=== PATIENT | female | born 1995 | race Two or more races ===

== ENCOUNTER → 2019-08-22 | Emergency (ER) | payer OTHER | END | disposition left against medical advice (07) | LOC: ER 15:20 | DX: R10.9 Unspecified abdominal pain (principal); Z53.21 Procedure and treatment not carried out due to patient leaving prior to being seen by health care provider ==

== ENCOUNTER → 2020-03-08 | Emergency (ER) | payer OTHER | END | disposition left against medical advice (07) | LOC: ER 13:02 | DX: R51 Headache (principal); Z53.21 Procedure and treatment not carried out due to patient leaving prior to being seen by health care provider ==

== ENCOUNTER 2023-09-14 21:52 | Emergency (ER) | payer MEDICAID, OTHER ==
[~2023-09-14] VITALS: Ht 160 cm; Wt 79.7 kg
[2023-09-15] MEDS: ACETAMINOPHEN 500 MG TAB PO ONE (01:28)
[2023-09-15 01:40] VITALS: PULSE 72; RESP 18; TEMP 97.9; O2SAT 99
[2023-09-15] MEDS ORDERED: ACET500T58 PO (01:41)
[2023-09-15] MEDS ORDERED: IBUP-1454 PO (01:41)
[2023-09-15] MEDS: SODIUM CHLORIDE 0.9% 1,000 ML IV ONE (02:14)
[2023-09-15 02:55] VITALS: BP 98/56
== END 2023-09-15 02:57 | disposition home or self-care (01) ==
LOC: ER 21:52
DX: S29.012A Strain of muscle and tendon of back wall of thorax, initial encounter (principal); Z88.0 Allergy status to penicillin; Z88.6 Allergy status to analgesic agent; V43.52XA Car driver injured in collision with other type car in traffic accident, initial encounter; Y93.89 Activity, other specified; Y92.488 Other paved roadways as the place of occurrence of the external cause; Y99.8 Other external cause status
CPT/HCPCS: 72070; 96360; 99283; J7030

== ENCOUNTER 2024-05-22 07:56 | Inpatient (IN) | payer MEDICAID ==
[~2024-05-22] VITALS: Ht 157.5 cm; Wt 84.6 kg
[~2024-05-22 07:56] MED LIST: ACET500T58 PO; IBUP-1454 PO
--- NOTE | 2024-05-22 08:16 | ED.PDOC ---
GI ASSESSMENT HPI Comments 28Y F with PMHx gastric bypass (Jul 2022) and cholecystectomy (05/19/2024) presents to ED via EMS for chief complaint abd pain [id number] that began when she woke up. Pt had lap foster performed on Saturday05/19/2024 at a hospital in [place], [place] and was discharged on the same day. Pt has one child. Allergies include Aspirin, NSAIDs, and PCNs. Time Seen by MD: 08:07 Primary Care Provider: NONE Reviewed Notes: Medications, Allergies Allergies: Coded Allergies: Aspirin (Verified Allergy, Unknown, 09/14/23) NSAIDs (Verified Allergy, Unknown, 09/14/23) Penicillins (Verified Allergy, Unknown, 09/14/23) Home Meds Active Scripts Ibuprofen (Ibuprofen) 600 Mg Tab, 1 TAB PO Q6HP PRN, #20 TAB Prov:JOSE MANUEL GUTIERREZ PAC 09/15/23 Acetaminophen (Acetaminophen) 500 Mg Tab, 500 MG PO Q4HP PRN, #20 TAB Prov:JOSE MANUEL GUTIERREZ PAC 09/15/23 Information Source: Patient Mode of Arrival: EMS Timing: Minutes Duration: Since onset Prehospital treatment: None Quality: Sharp Vomitus: None Severity: Moderate Recent: Recent Surgery Recent Hx of: Abdominal Surgery Pain Location: Diffuse Modifying Factors: Nothing Associated sign and symptoms: Abdominal Pain Past Medical History PAST MEDICAL HISTORY: Denies Surgical History: Cholecystectomy Surgical History (Other): Gastric bypass INTAKE MANAGER History: No Pertinent INTAKE MANAGER History Family History Family History: Reviewed,noncontributory to illness, No family hx of Cancer, No family hx of DM, No family hx of Heart dmitriy, No family hx of HTN, No family hx ofKidney dmitriy, No family hx of Liver dmitriy, No family hx of Lung dmitriy, No family hx of Stroke Social History Smoker: Non-Smoker Alcohol: Denies ETOH Use Drugs: Denies Drug Use Lives In: Home Constitutional: denies: chills, diaphoresis, fatigue, fever, malaise, sweats, weakness, others EENTM: denies: blurred vision, double vision, ear bleeding, ear discharge, ear drainage, ear pain, ear ringing, eye pain, eye redness, hearing loss, mouth pain, mouth swelling, nasal discharge, nose bleeding, nose congestion, nose pain, photophobia, tearing, throat pain, throat swelling, voice changes, others Respiratory: denies: cough, hemoptysis, orthopnea, SOB at rest, shortness of breath, SOB with excertion, stridor, wheezing, others Cardiovascular: denies: chest pain, dizzy spells, diaphoresis, Dyspnea on exertion, edema, irregular heart beat, left arm pain, lightheadedness, palpitations, PND, syncope, others Gastrointestinal: reports: abdominal pain; denies: abdomen distended, blood streaked bowels, constipated, diarrhea, dysphagia, difficulty swallowing, hematemesis, melena, nausea, poor appetite, poor fluid intake, rectal bleeding, rectal pain, vomiting, others Genitourinary: denies: abnormal vagina bleeding, burning, dyspareunia, dysuria, flank pain, frequency, hematuria, incontinence, pain, , vagina discharge, urgency, others Neurological: denies: dizziness, fainting, headache, left sided numbness, left sided weakness, numbness, paresthesia, pre-existing deficit, right sided numbness, right sided weakness, seizure, speech problems, tingling, tremors, weakness, others Musculoskeletal: denies: back pain, gout, joint pain, joint swelling, muscle pain, muscle stiffness, neck pain, others Integumetry: denies: bruises, change in color, change in hair/nails, dryness, laceration, lesions, lumps, rash, wounds, others Allergic/Immunocompromised: denies: Difficulty Healing, Frequent Infections, Hives, Itching, others Hematologic/Lymphatic: denies: anemia, blood clots, easy bleeding, easy bruising, swollen glands, others Endocrine: denies: excessive hunger, excessive sweating, excessive thirst, excessive urination, flushing, intolerance to cold, intolerance to heat, unexplained weight gain, unexplained weight loss, others Psychiatric: denies: anxiety, bipolar disorder, depression, hopeless, panic disorder, schizophrenia, sleepless, suicidal, others All Other Systems: Reviewed and Negative Physical Exam General Appearance: Moderate Distress, Normal HEENT: Normal ENT Inspection, Pharynx Normal, TMs Normal Neck: Full Range of Motion, Non-Tender, Normal, Normal Inspection Respiratory: Chest Non-Tender, Lungs Clear, No Accessory Muscle Use, No Respiratory Distress, Normal Breath Sounds Cardiovascular: No Edema, No JVD, No Murmur, No Gallop, Normal Peripheral Pulses, Regular Rate/Rhythm Breast Exam: Deferred Gastrointestinal: Soft, Tenderness Genitalia: Deferred Pelvic: Deferred Rectal: Deferred Extremities: No calf tenderness, Normal capillary refill, Normal inspection, Normal range of motion, Non-tender, No pedal edema Musculoskeletal : Apperance: Normal Neurologic: Alert, arcade attendant II-XII nml as Tested, No Motor Deficits, Normal Affect, Normal Mood, No Sensory Deficits Cerebellar Function: NOT DONE Reflexes: NOT DONE Skin: Dry, Normal Color, Warm Peripheral Pulses: 3+ Radial (R), 3+ Radial (L) Lymphatic: No Adenopathy Was a procedure done? Was a procedure done?: No GI differential Dx Differential Diagnosis: Constipation, Diverticular disease, Esophagitis, Gastritis/PUD, Gastroenteritis X-Ray, Labs, Meds, VS Vital Signs Date Time Temp Pulse Resp B/P (MAP) Pulse Ox O2 Delivery O2 Flow Rate FiO2 05/22/24 10:50 72 19 109/67 05/22/24 09:00 95 16 113/72 05/22/24 08:30 67 17 123/66 05/22/24 08:21 67 17 98 Room Air* 0 21 05/22/24 08:20 98.7 68 17 123/66 (85) 98 98.7 05/22/24 08:06 98.4 64 18 117/82 (94) 97 Lab Test 05/22/24 10:25 05/22/24 09:18 05/22/24 08:28 Range/Units Lactic Acid Level Pending Urine Color Yellow Yellow Urine Clarity Clear Clear Urine pH 6.0 5.0-9.0 Urine Specific [place] 1.021 1.001-1.035 Urine Protein Negative Negative Urine Ketones 3+ H Negative Urine Blood Negative Negative /uL Urine Nitrite Negative Negative Urine Bilirubin Negative Negative Urine Urobilinogen Normal Negative mg/dL Urine Leukocyte Esterase 2+ Negative /uL Urine RBC 3 0 - 4 /hpf Urine WBC 5 0 - 5 /hpf Urine Squamous Epithelial Cells Few <5 /hpf Urine Bacteria None seen None Seen /hpf Urine Mucus Few None Seen Urine Glucose Normal Normal mg/dL White Blood Count 14.8 H 4.4-10.8 10^3/uL Red Blood Count 4.74 4.0-5.20 10^6/uL Hemoglobin 9.8 L 12.2-16.2 g/dL Hematocrit 32.8 L 36.0-46.0 % Mean Corpuscular Volume 69.3 L 80.0-100.0 fL Mean Corpuscular Hemoglobin 20.8 L 28.0-32.0 pg Mean Corpuscular Hemoglobin Concent 29.9 L 32.0-36.0 g/dL Red Cell Distribution Width 17.6 H 11.8-14.3 % Platelet Count 333 140-450 10^3/uL Mean Platelet Volume 8.2 6.9-10.8 fL Neutrophils (%) (Auto) 73.7 37.0-80.0 % Lymphocytes (%) (Auto) 17.5 10.0-50.0 % Monocytes (%) (Auto) 7.5 0.0-12.0 % Eosinophils (%) (Auto) 0.9 0.0-7.0 % Basophils (%) (Auto) 0.4 0.0-2.0 % Neutrophils # (Auto) 10.9 H 1.6-8.6 10 ^3/uL Lymphocytes # (Auto) 2.6 0.4-5.4 10 ^3/uL Monocytes # (Auto) 1.1 0-1.3 10 ^3/uL Eosinophils # (Auto) 0.1 0-0.8 10 ^3/uL Basophils # (Auto) 0.1 0-0.2 10 ^3/uL Nucleated Red Blood Cells 0.1 % Platelet Estimate Pending Sodium Level 139 136-145 mmol/L Potassium Level 3.6 3.5-5.1 mmol/L Chloride Level 104 98-107 mmol/L Carbon Dioxide Level 25 20-31 mmol/L Anion Gap 10 5-15 Blood Urea Nitrogen 9 9-23 mg/dL Creatinine 0.60 0.550-1.02 mg/dL Glomerular Filtration Rate Calc 124 >90 mL/min BUN/Creatinine Ratio 15.0 10.0-20.0 Serum Glucose 100 74-106 mg/dL Calcium Level 9.6 8.7-10.4 mg/dL Current Medications Medications (Trade) Dose Ordered Sig/Aisha Route Start Time Stop Time Status Last Admin Sodium Chloride 1,000 ml @ 1,000 mls/hr Q1H ONCE IV 05/22/24 08:15 05/22/24 09:14 DC 05/22/24 08:29 Ondansetron HCl (Zofran) 4 mg ONCE ONCE IV 05/22/24 08:15 05/22/24 08:16 DC 05/22/24 08:30 Morphine Sulfate 4 mg ONCE ONCE IV 05/22/24 08:15 05/22/24 08:16 DC 05/22/24 08:30 Hydromorphone HCl (Dilaudid Injection) 1 mg ONCE ONCE IV 05/22/24 10:00 05/22/24 10:01 DC 05/22/24 10:50 Sodium Chloride 1,000 ml @ 1,000 mls/hr Q1H ONCE IVB 05/22/24 10:00 05/22/24 10:59 05/22/24 10:53 Metronidazole 100 ml @ 100 mls/hr ONCE ONCE IV 05/22/24 10:00 05/22/24 10:59 05/22/24 10:48 [place] [address] Ph: [phone] DIAGNOSTIC IMAGING Diagnostic Imaging Report : [id number] Signed PATIENT: CHRISTINA MACEDOACCT: [id number] UNIT: [id number] : 1995 LOC: ER ROOM / BED: / AGE / SEX: 28 / F ADM STATUS: REG ER SERVICE [id number] ORDERING PHYSICIAN: TEDDY ODELL MD PROCEDURE(s): ABPLIV - CT AB PEL WITH IV CON ONLY REASON: colitis ORDER NUMBER(s): [id number], ACCESSION NUMBER(s): [id number] Exam: CT CT AB PEL WITH IV CON ONLY History: colitis COMPARISON: None Technique: Multidetector spiral CT of the abdomen and pelvis was performed from lung bases to pubic symphysis. Intravenous contrast was administered during this examination. Portal venous imaging was obtained. Axial, coronal and sagittal multiplanar reformats were performed by the technologist on a separate workstation. Radiation Dose : Abdomen/Pelvis: CTDIvol 13.34 mGy, DLP 743.89 mGy*cm. CONTRAST: Type of contrast: Omni 300 Contrast injected: 99 mL Findings: Lung Bases: Trace bilateral pleural effusions with associated bibasilar atelectasis Liver: The liver is normal in size. No focal lesions. Normal hepatic vascular enhancement. Gallbladder and biliary Tree: Gallbladder fossa appears abnormal with fluid and air. Suspect prior cholecystectomy. If patient has a Gallbladder it is abnormal. Spleen: Unremarkable Pancreas: The pancreas is normal in appearance without focal lesions or abnormal enhancement. Adrenal Glands: Unremarkable Kidneys: No hydronephrosis. Bladder: Unremarkable Bowel: Postsurgical changes of the stomach. Small bowel is nondilated. There are postsurgical changes in the left upper quadrant. There is mild diffuse thickening of the colon wall. Normal appendix is visualized in the right lower quadrant without findings of appendicitis. Ascites: Small amount of free fluid in the right pericolic gutter tracking to the pelvis. Lymphadenopathy: No mesenteric, retroperitoneal or periportal lymphadenopathy. Abdominal wall and Mesentery: Small amount of pneumoperitoneum. Vasculature: The visualized abdominal aorta is normal in size and caliber. Abdominal and pelvic vessels demonstrate normal enhancement. Pelvic Organs: Unremarkable Musculoskeletal: No aggressive focal bony lesions, acute fractures or dislocation. IMPRESSION: 1. Abnormal appearance of the gallbladder fossa with stranding, fluid and air bubbles. There is also a small amount of pneumoperitoneum as well as a small amount of fluid tracking down the right pericolic gutter. Suspect these are post cholecystectomy changes. If patient has a Gallbladder it is abnormal. Consider further evaluation with ultrasound or HIDA scan. 2. Mild diffuse wall thickening of the colon consistent with given history of colitis. 3. Small bilateral pleural effusions with associated compressive atelactasis Radiation optimization: All CT scans at this facility use at least one of these dose optimization techniques: Automated exposure control mA and/or kV adjustment per patient size (includes targeted exams where dose is matched to clinical indication) or iterative reconstruction. HS:Y ATED BY: ALVA LOMBARDO MD DICTATED DATE/TIME: 05/22/24 104 SIGNED BY: ALVA LOMBARDO MD SIGNED DATE/TIME: 05/22/24 104 CC: Patient alert. Complaining of abdominal pain. Vitals stable. Answering all questions. Establish intravenous access. Was given fluids. Was given pain medication. Recently had gallbladder surgery. Laparoscopic ports not infected. Abdomen is soft. Reviewed her history. Explained to the patient. Continue cardiac monitoring. She continues to have abdominal pain. Was given Dilaudid. Sepsis protocol. Was given Levaquin. Was given Flagyl. Reviewed her visit at [facility]. Time of 1ST Reevaluation: 08:37 Reevaluation 1ST: Unchanged Patient Education/Counseling: Diagnosis, Treatment Family Education/Counseling: No Family Present Departure 1 Departure Time of Disposition: 09:07 Impression: Primary Impression: Non-specific colitis Disposition: ADMITTED INPATIENT Admit to: Med Surg Condition: Guarded Critical Care Note Critical Care Time?: Yes (45 min-critical care time only) Stability Stability form required: No Heart Score Heart Score: Heart Score Response (Comments) Value History N/A 0 EKG N/A 0 Age N/A 0 Risk Factors N/A 0 Troponin N/A 0 Total 0 I personally scribed for TEDDY ODELL MD ([email or web address]) on 05/22/24 at 08:16. E lectronically submitted by Lisette Garcia ([facility]). I personally scribed for TEDDY ODELL MD ([email or web address]) on 05/22/24 at 10:55. Electronically submitted by Lisette Garcia ([email or web address]). TEDDY ODELL MD May 22, 2024 08:16
[2024-05-22 08:21] VITALS: PULSE 67; RESP 17; O2SAT 98
[2024-05-22] MEDS: SODIUM CHLORIDE 0.9% 1,000 ML IV ONE ×2 (08:29→12:58)
[2024-05-22] MEDS: ONDANSETRON HCL 4 MG/2 ML VIAL IV ONE (08:30)
[2024-05-22] MEDS: MORPHINE SULFATE 4 MG/ML SYR/VIAL IV ONE (08:30)
[2024-05-22 09:05] LABS: Chloride 104 mmol/L (98-107); Eosinophils # (auto) 0.1 10 ^3/uL (0-0.8); Eosinophils % (auto) 0.9 % (0.0-7.0); Hemoglobin 9.8 g/dL (12.2-16.2); Lymphocytes # (auto) 2.6 10 ^3/uL (0.4-5.4); Lymphocytes % (auto) 17.5 % (10.0-50.0); Monocytes # (auto) 1.1 10 ^3/uL (0-1.3); Neutrophils # (auto) 10.9 10 ^3/uL (1.6-8.6); Potassium 3.6 mmol/L (3.5-5.1); Red Blood Cells 4.74 10^6/uL (4.0-5.20); Sodium 139 mmol/L (136-145); White Blood Cell 14.8 10^3/uL (4.4-10.8)
[2024-05-22 09:06] LABS: Anion Gap 10 (5-15); Carbon Dioxide 25 mmol/L (20-31)
[2024-05-22 09:07] LABS: Basophils # (auto) 0.1 10 ^3/uL (0-0.2); Basophils % (auto) 0.4 % (0.0-2.0); Calcium 9.6 mg/dL (8.7-10.4); Hematocrit 32.8 % (36.0-46.0); Mean Corpuscular Hemoglobin 20.8 pg (28.0-32.0); Mean Corpuscular Hgb Conc. 29.9 g/dL (32.0-36.0); Mean Corpuscular Volume 69.3 fL (80.0-100.0); Monocytes % (auto) 7.5 % (0.0-12.0); Neutrophils % (auto) 73.7 % (37.0-80.0); Nucleated Red Blood Cells % 0.1 %; Platelet Count (auto) 333 10^3/uL (140-450); Red Cell Distribution Width 17.6 % (11.8-14.3)
[2024-05-22 09:11] LABS: Blood Urea Nitrogen 9 mg/dL (9-23); Glucose 100 mg/dL (74-106)
[2024-05-22 09:25] LABS: Urine Bacteria None Seen /hpf (None Seen)
[2024-05-22 09:41] LABS: Urine Blood Negative /uL (Negative); Urine Clarity Clear (Clear); Urine Color Yellow (Yellow); Urine Mucus FEW (None Seen); Urine Protein, UAD Negative (Negative); Urine Specific Gravity 1.021 (1.001-1.035); Urine Urobilinogen Normal (Negative); Urine WBC 5 /hpf (0 - 5)
[2024-05-22] MEDS ORDERED: levoFLOXacin 500MG 100 ML IV ONE (10:00)
[2024-05-22] MEDS: IOHEXOL 300 MG/ML 100ML BOTTLE IJ ONE (10:07)
--- NOTE | 2024-05-22 10:44 | DVH ---
Exam: CT CT AB PEL WITH IV CON ONLY History: colitis COMPARISON: None Technique: Multidetector spiral CT of the abdomen and pelvis was performed from lung bases to pubic symphysis. Intravenous contrast was administered during this examination. Portal venous imaging was obtained. Axial, coronal and sagittal multiplanar reformats were performed by the technologist on a separate workstation. Radiation Dose : Abdomen/Pelvis: CTDIvol 13.34 mGy, DLP 743.89 mGy*cm. CONTRAST: Type of contrast: Omni 300 Contrast injected: 99 mL Findings: Lung Bases: Trace bilateral pleural effusions with associated bibasilar atelectasis Liver: The liver is normal in size. No focal lesions. Normal hepatic vascular enhancement. Gallbladder and biliary Tree: Gallbladder fossa appears abnormal with fluid and air. Suspect prior ch olecystectomy. If patient has a Gallbladder it is abnormal. Spleen: Unremarkable Pancreas: The pancreas is normal in appearance without focal lesions or abnormal enhancement. Adrenal Glands: Unremarkable Kidneys: No hydronephrosis. Bladder: Unremarkable Bowel: Postsurgical changes of the stomach. Small bowel is nondilated. There are postsurgical changes in the left upper quadrant. There is mild diffuse thickening of the colon wall. Normal appendix is visualized in the right lower quadrant without findings of appendicitis. Ascites: Small amount of free fluid in the right pericolic gutter tracking to the pelvis. Lymphadenopathy: No mesenteric, retroperitoneal or periportal lymphadenopathy. Abdominal wall and Mesentery: Small amount of pneumoperitoneum. Vasculature: The visualized abdominal aorta is normal in size and caliber. Abdominal and pelvic vess els demonstrate normal enhancement. Pelvic Organs: Unremarkable Musculoskeletal: No aggressive focal bony lesions, acute fractures or dislocation. IMPRESSION: 1. Abnormal appearance of the gallbladder fossa with stranding, fluid and air bubbles. There is also a small amount of pneumoperitoneum as well as a small amount of fluid tracking down the right pericol ic gutter. Suspect these are post cholecystectomy changes. If patient has a Gallbladder it is abnorma l. Consider further evaluation with ultrasound or HIDA scan. 2. Mild diffuse wall thickening of the colon consistent with given history of colitis. 3. Small bilateral pleural effusions with associated compressive atelactasis Radiation optimization: All CT scans at this facility use at least one of these dose optimization feng hniques: Automated exposure control mA and/or kV adjustment per patient size (includes targeted exams where dose is matched to clinical indication) or iterative reconstruction. HS:Y
[2024-05-22] MEDS: metroNIDAZOLE 500MG/100ML 100 ML IV ONE (10:48)
[2024-05-22] MEDS: HYDROmorphone HCL 2 MG/ML VL/or syr IV ONE (10:50)
[2024-05-22] MEDS: SODIUM CHLORIDE 0.9% 1,000 ML IVB ONE (10:53)
[2024-05-22] MEDS: levoFLOXacin 250MG 50 ML IV SCH (11:13)
[2024-05-22] MEDS ORDERED: ONDANSETRON HCL 4 MG/2 ML VIAL IV PRN (11:45)
[2024-05-22 12:07] LABS: Platelet Estimate Adequate
[2024-05-22 12:08] LABS: Hypochromia Marked
--- NOTE | 2024-05-22 12:22 | DVHHP2 ---
History of Present Illness Reason for Visit: Abdominal pain History of Present Illness 28-year-old female presented to the ED via EMS for chief complaint of abdominal pain which began when she woke up this morning. Patient had a lap foster performed on Saturday05/19/2024, at a hospital in [place], patient was discharged the same day. Patient states there were no complications after procedure. Patient was scheduled to see surgeon in 2 weeks. Patient's did inform the surgeon that patient was in the hospital. Patient also endorses feeling tired, patient has been taking [place] around the clock until she ran out. Patient does endorse any fevers, chills, nausea, vomiting or diarrhea. Patient denies chest pain, headache, dizziness, diaphoresis, shortness of breath. Patient was admitted for further evaluation medical management. Past Medical History Denies Past Surgical History Gastric bypass Family History Reviewed noncontributory to the management of this case Smoke: No ALCOHOL: none Drugs: None Lives: with Family Review of Systems Constitutional: Yes: Malaise; No: Fever, Chills, Sweats, Weakness, Other Eyes: No: Pain, Vision change, Conjunctivae inflammation, Eyelid inflammation, Other, Redness ENT: No: Ear pain, Ear discharge, Nose pain, Nose discharge, Nose congestion, Mouth pain, Mouth swelling, Throat pain, Throat swelling, Other Respiratory: No: Cough, Dry, Shortness of breath, SOB with excertion, Wheezing, Hemoptysis, Pleuritic Pain, Sputum, Wheezing, Other Cardiovascular: No: Chest Pain, Palpitations, Orthopnea, Paroxysmal Noc. Dyspnea, Edema, Lt Headedness, Other Gastrointestinal: Abdominal Pain; No: Nausea, Vomiting, Diarrhea, Constipation, Melena, Hematochezia, Other Genitourinary: No Dysuria, No Frequency, No Incontinence, No Hematuria, No Retention, No Other Musculoskeletal: No: other, neck pain, shoulder pain, arm pain, back pain, hand pain, leg pain, foot pain Skin: No: Rash, Lesions, Jaundice, Bruising, Other Neurological: No: Weakness, Numbness, Incoordination, Change in speech, Confusion, Seizures, Other Allergies: Coded Allergies: Aspirin (Verified Allergy, Unknown, 09/14/23) NSAIDs (Verified Allergy, Unknown, 09/14/23) Penicillins (Verified Allergy, Unknown, 09/14/23) Medications Current Medications Medications Dose Ordered Sig/Aisha Route Start Time Stop Time Status Last Admin Dose Admin Levofloxacin 50 ml @ 50 mls/hr Q1H IV 05/22/24 11:00 05/22/24 12:59 05/22/24 11:13 50 MLS/HR Acetaminophen/ Hydrocodone Bitart 1 tab Q4HP PRN PO 05/22/24 11:45 UNV Ondansetron HCl 4 mg Q4HP PRN IV 05/22/24 11:45 UNV Morphine Sulfate 1 mg Q4HPRN PRN IV 05/22/24 11:45 UNV Levofloxacin 50 ml @ 50 mls/hr DAILY IV 05/23/24 10:00 05/24/24 10:59 UNV Metronidazole 100 ml @ 100 mls/hr Q8HR IV 05/22/24 14:00 UNV Exam Vital Signs Vital Signs Date Time Temp Pulse Resp B/P (MAP) Pulse Ox O2 Delivery O2 Flow Rate FiO2 05/22/24 11:20 78 15 109/62 05/22/24 10:00 96 05/22/24 08:21 Room Air* 0 21 05/22/24 08:20 98.7 98.7 General Appearance: Alert, Oriented X3, Cooperative, No acute distress HEENT: Atraumatic, PERRLA, EOMI, Mucous membr. moist/pink Respiratory: Clear to auscultation, Normal air movement Cardiovascular: Regular rate, Normal S1, Normal S2, No murmurs Abdominal: Normal bowel sounds, Soft, No tenderness, No hepatospenomegaly, No masses Extremities: No clubbing, No cyanosis, No edema, Normal pulses, No tenderness/swelling Skin: No rashes, No breakdown, No significant lesion Neuro: Normal gait, Normal speech, Strength at 5/5 X4 ext, Normal tone, Sensation intact, Cranial nerves 3-12 NL, Reflexes 2+ Psych/Mental Status: Mental status NL, Mood NL Labs/Xrays Labs, imaging and ED notes reviewed Labs Test 05/22/24 10:25 05/22/24 09:18 05/22/24 08:28 Range/Units Lactic Acid Level 1.3 0.4-2.0 mmol/L Urine Color Yellow Yellow Urine Clarity Clear Clear Urine pH 6.0 5.0-9.0 Urine Specific [place] 1.021 1.001-1.035 Urine Protein Negative Negative Urine Ketones 3+ H Negative Urine Blood Negative Negative /uL Urine Nitrite Negative Negative Urine Bilirubin Negative Negative Urine Urobilinogen Normal Negative mg/dL Urine Leukocyte Esterase 2+ Negative /uL Urine RBC 3 0 - 4 /hpf Urine WBC 5 0 - 5 /hpf Urine Squamous Epithelial Cells Few <5 /hpf Urine Bacteria None seen None Seen /hpf Urine Mucus Few None Seen Urine Glucose Normal Normal mg/dL White Blood Count 14.8 H 4.4-10.8 10^3/uL Red Blood Count 4.74 4.0-5.20 10^6/uL Hemoglobin 9.8 L 12.2-16.2 g/dL Hematocrit 32.8 L 36.0-46.0 % Mean Corpuscular Volume 69.3 L 80.0-100.0 fL Mean Corpuscular Hemoglobin 20.8 L 28.0-32.0 pg Mean Corpuscular Hemoglobin Concent 29.9 L 32.0-36.0 g/dL Red Cell Distribution Width 17.6 H 11.8-14.3 % Platelet Count 333 140-450 10^3/uL Mean Platelet Volume 8.2 6.9-10.8 fL Neutrophils (%) (Auto) 73.7 37.0-80.0 % Lymphocytes (%) (Auto) 17.5 10.0-50.0 % Monocytes (%) (Auto) 7.5 0.0-12.0 % Eosinophils (%) (Auto) 0.9 0.0-7.0 % Basophils (%) (Auto) 0.4 0.0-2.0 % Neutrophils # (Auto) 10.9 H 1.6-8.6 10 ^3/uL Lymphocytes # (Auto) 2.6 0.4-5.4 10 ^3/uL Monocytes # (Auto) 1.1 0-1.3 10 ^3/uL Eosinophils # (Auto) 0.1 0-0.8 10 ^3/uL Basophils # (Auto) 0.1 0-0.2 10 ^3/uL Nucleated Red Blood Cells 0.1 % Platelet Estimate Adequate Hypochromasia (manual) Marked Microcytosis Marked Sodium Level 139 136-145 mmol/L Potassium Level 3.6 3.5-5.1 mmol/L Chloride Level 104 98-107 mmol/L Carbon Dioxide Level 25 20-31 mmol/L Anion Gap 10 5-15 Blood Urea Nitrogen 9 9-23 mg/dL Creatinine 0.60 0.550-1.02 mg/dL Glomerular Filtration Rate Calc 124 >90 mL/min BUN/Creatinine Ratio 15.0 10.0-20.0 Serum Glucose 100 74-106 mg/dL Calcium Level 9.6 8.7-10.4 mg/dL Assessment/Plan Assessment/Plan Abdominal pain/status post lap foster Admit to medical/surgical Given WBCs 14.8, started on Levaquin and Flagyl Sepsis protocol- blood cultures pending pain medication p.r.n. Zofran p.r.n. nausea Follow up a.m. labs Anemia, possibly acute s/p lap foster Hemoglobin 9.8 g/dL Monitor a.m. labs to trend FEN/PPX GI prophylaxis-Protonix VTE prophylaxis not indicated, pt is ambulatory IV fluids x1L Regular diet Plan discussed with: Patient My Orders Orders - KHANG BOLAND Procedure Category Date Status Time Admit ADMIT 05/22/24 Transmitted 11:43 Code Status CODE 05/22/24 Transmitted 11:43 Vital Signs [facility] 05/22/24 In Process 11:43 Review Orders With [facility] 05/22/24 In Process Adm. 11:43 Up Ad Zoila JULIET 05/22/24 In Process 11:43 Regular Diet DIET 05/22/24 Transmitted Lunch Notify Of Changes [facility] 05/22/24 In Process From Base 11:43 Advance Directive JULIET 05/22/24 In Process 11:43 Basic Metabolic Panel LAB 05/23/24 Verified 04:00 Complete Blood Count LAB 05/23/24 Verified 04:00 Patient Condition ORDERS 05/22/24 Transmitted 11:43 Allergies JULIET 05/22/24 In Process 11:43 Hydrocodone-Acet PHA 05/22/24 Logged 5/325mg Tab ([place] 11:45 Ondansetron Hcl PHA 05/22/24 Logged (Zofran) 11:45 Morphine Sulfate PHA 05/22/24 Logged Injection 11:45 Sequential JULIET 05/22/24 In Process Compression Device Levofloxacin 250mg PHA 05/23/24 Logged (Levaquin 250mg) 10:00 Metronidazole PHA 05/22/24 Logged 500mg/100ml (Flagyl 14:00 Date of Service: May 22, 2024 Billing Provider: KHANG BOLAND Common Visit Codes: [id number] INP/OBS CARE (HIGH) KHANG BOLAND May 22, 2024 12:22
[2024-05-22] MEDS: PANTOPRAZOLE 40 MG/10 ML VIAL INJ IV SCH (12:58)
[2024-05-22] MEDS: MORPHINE SULFATE INJ 2 MG/ml SYRG IV PRN (14:20)
[2024-05-22] MEDS: metroNIDAZOLE 500MG/100ML 100 ML IV SCH (14:23)
[2024-05-22] MEDS: HYDROcodone-ACET 5/325MG TAB PO PRN (15:33)
[2024-05-22] MEDS: SIMETHICONE 80 MG CHEWABLE TABLET PO SCH (16:09)
[2024-05-22] MEDS: DOCUSATE SOD 100 MG CAP PO SCH (16:09)
[2024-05-22 17:00] VITALS: BP 121/70; PULSE 74; RESP 16; TEMP 98.6; O2SAT 98
[2024-05-22] MEDS: HYDROMORPHONE HCL 1 MG/ML INJ IV PRN (17:33)
[2024-05-22 20:00] VITALS: PULSE 79; RESP 16; O2SAT 98
[2024-05-22 21:00] VITALS: BP 112/71; PULSE 80; RESP 18; TEMP 98; O2SAT 92
[2024-05-23] VITALS (7 sets, daily range): BP systolic 96–145; BP diastolic 50–78; PULSE 65–83; RESP 12–19; TEMP 97.7–98.3; O2SAT 95–100
[2024-05-23 06:54] LABS: Basophils # (auto) 0 10 ^3/uL (0-0.2); Basophils % (auto) 0.3 % (0.0-2.0); Eosinophils # (auto) 0 10 ^3/uL (0-0.8); Hemoglobin 8.8 g/dL (12.2-16.2); Lymphocytes % (auto) 9.3 % (10.0-50.0); Monocytes # (auto) 1.1 10 ^3/uL (0-1.3)
[2024-05-23 06:57] LABS: Eosinophils % (auto) 0.4 % (0.0-7.0); Hematocrit 28.4 % (36.0-46.0); Lymphocytes # (auto) 1.2 10 ^3/uL (0.4-5.4); Mean Corpuscular Hemoglobin 21.3 pg (28.0-32.0); Mean Corpuscular Hgb Conc. 30.9 g/dL (32.0-36.0); Mean Corpuscular Volume 68.9 fL (80.0-100.0); Monocytes % (auto) 8.8 % (0.0-12.0); Neutrophils # (auto) 10.2 10 ^3/uL (1.6-8.6); Neutrophils % (auto) 81.2 % (37.0-80.0); Platelet Count (auto) 316 10^3/uL (140-450); Red Blood Cells 4.13 10^6/uL (4.0-5.20); Red Cell Distribution Width 17.5 % (11.8-14.3); White Blood Cell 12.5 10^3/uL (4.4-10.8)
[2024-05-23 07:14] LABS: Anion Gap 6 (5-15); Carbon Dioxide 25 mmol/L (20-31); Chloride 106 mmol/L (98-107); Potassium 3.7 mmol/L (3.5-5.1); Sodium 137 mmol/L (136-145)
[2024-05-23 07:15] LABS: Calcium 9.1 mg/dL (8.7-10.4)
[2024-05-23 07:20] LABS: Glucose 94 mg/dL (74-106)
[2024-05-23 07:24] LABS: BUN/Creatinine Ratio 10.6 (10.0-20.0); Blood Urea Nitrogen < 5 mg/dL (9-23)
[2024-05-23 08:24] LABS: Hypochromia Moderate; Platelet Estimate Adequate
[2024-05-23] MEDS: levoFLOXacin 250MG 50 ML IV SCH (09:43)
--- NOTE | 2024-05-23 13:51 | DVHCONRES ---
Date Seen: May 23, 2024 Resident Creating Document: DILLAN ROSAS RESIDENT Referring Physician Erika Ying NP Reason for Consultation Abdominal pain status post lap cholecystectomy History of Present Illness This is a 28-year-old female with no known past medical history who presented to the ED with abdominal pain of 1 day's duration. According to the patient, she had a lap cholecystectomy 05/19/2024 at a hospital in [place]. Surgery went well without any complications and was discharged home same day. She has been on fluid diet and tolerating that until Saturday morning when she starting having the abdominal pains. Pain started in RUQ then radiated to the left upper quadrant and to back. Pain was so severe rated 10/10 and was unable to bend or move. Thus, she called to EMS and was brought to [facility] ED. Patient denied fever, nausea, vomiting, or eaten heavy foods or alcohol anything immediately postop. Her vitals were totally unremarkable; however, her WBC was elevated at 14.8, hemoglobin 9.8, hematocrit 32.8. Chemistry was grossly unremarkable except, AST: 137, ALT: 437, ALK: 230,T. bilirubin 0.5. CT abdomen showed, "Abnormal appearance of the gallbladder fossa with stranding, fluid and air bubbles. There is also a small amount of pneumoperitoneum as well as a small amount of fluid tracking down the right pericolic gutter" and "Mild diffuse wall thickening of the colon consistent with given history of colitis". Patient is started on antibiotic and GI consulted for further evaluation. Past Medical History None Past Surgical History Gastric bypass Family History: Diabetes mellitus G8 MOTHER FH: schizophrenia G8 FATHER Social History Patient works at [employer]. She she denies drinking or smoking. Allergies: Coded Allergies: Aspirin (Verified Allergy, Unknown, 09/14/23) NSAIDs (Verified Allergy, Unknown, 09/14/23) Penicillins (Verified Allergy, Unknown, 09/14/23) Home Meds Active Scripts Ibuprofen (Ibuprofen) 600 Mg Tab, 1 TAB PO Q6HP PRN, #20 TAB Prov:JOSE MANUEL GUTIERREZ PAC 09/15/23 Acetaminophen (Acetaminophen) 500 Mg Tab, 500 MG PO Q4HP PRN, #20 TAB Prov:JOSE MANUEL GUTIERREZ PAC 09/15/23 Current Medications Current Medications Medications (Trade) Dose Ordered Sig/Aisha Route PRN Reason Start Time Stop Time Status Last Admin Levofloxacin 50 ml @ 50 mls/hr 1000,1100 IV 05/23/24 10:00 05/23/24 11:59 DC 05/23/24 09:43 Metronidazole 100 ml @ 100 mls/hr Q8HR IV 05/22/24 14:00 05/23/24 05:19 Hydromorphone HCl (Dilaudid Innjection) 0.5 mg Q4HPRN PRN IV SEVERE PAIN (7-10 PAIN SCALE) 05/22/24 14:45 05/23/24 03:00 Docusate Sodium (Colace Capsule) 100 mg BID PO 05/22/24 15:30 05/23/24 09:42 Dimethicone (Mylicon Tab) 40 mg QID PO 05/22/24 15:30 05/23/24 12:16 Review of Systems Constitutional:Denies fever, chills, feeling of malaise HEENT: Denies headache, ear pain, ear discharges, jaundice, scleral icterus,nasal discharge no throat pain Cardiovascular: Chest pain yesterday; Denies palpitation, orthopnea, PND, pedal edema Respiratory: Denies Cough, sputum production, shortness of breath, hemoptysis, GI: Denies abdominal pain, nausea, no vomiting, no diarrhea, no him hematemesis, no he hematochezia, : No frequency, no urgency, no hematuria, Heme/onco: Denies easy bruising, bleeding disorders, epistaxis, Psych: Denies depression, jerry, suicidal ideation Vital Signs Vital Signs Date Time Temp Pulse Resp B/P (MAP) Pulse Ox O2 Delivery O2 Flow Rate FiO2 05/23/24 05:00 98.0 75 18 118/72 (87) 95 98.0 05/22/24 20:00 Room Air* 0 21 Physical Exam General examination- Not in acute distress HEENT- PEERLA, no acute nasal discharge Cardiovascular- S1-S2 audible, rate and rhythm regular, no murmur Respiratory- CTAB, no wheeze or rhonchi Gastrointestinal- 5 notable surgical site. nondistended. abdominal tenderness upper and lower, lower abdominal tenderness, bowel sound+. passing flatulence, but No bowel movement Musculoskeletal-no acute joint swelling or tenderness or redness Lower extremity- no leg edema Neurological- cranial nerves intact, no acute dysarthria or dysphagia Psychiatry- denies depression or SI or HI Skin- no acute rash or purpura Labs/Diagnostic Data Labs Test 05/23/24 06:34 05/22/24 10:25 05/22/24 09:18 05/22/24 08:28 Range/Units White Blood Count 12.5 H 4.4-10.8 10^3/uL Red Blood Count 4.13 4.0-5.20 10^6/uL Hemoglobin 8.8 L 12.2-16.2 g/dL Hematocrit 28.4 #L 36.0-46.0 % Mean Corpuscular Volume 68.9 L 80.0-100.0 fL Mean Corpuscular Hemoglobin 21.3 L 28.0-32.0 pg Mean Corpuscular Hemoglobin Concent 30.9 L 32.0-36.0 g/dL Red Cell Distribution Width 17.5 H 11.8-14.3 % Platelet Count 316 140-450 10^3/uL Mean Platelet Volume 7.6 6.9-10.8 fL Neutrophils (%) (Auto) 81.2 H 37.0-80.0 % Lymphocytes (%) (Auto) 9.3 L 10.0-50.0 % Monocytes (%) (Auto) 8.8 0.0-12.0 % Eosinophils (%) (Auto) 0.4 0.0-7.0 % Basophils (%) (Auto) 0.3 0.0-2.0 % Neutrophils # (Auto) 10.2 H 1.6-8.6 10 ^3/uL Lymphocytes # (Auto) 1.2 0.4-5.4 10 ^3/uL Monocytes # (Auto) 1.1 0-1.3 10 ^3/uL Eosinophils # (Auto) 0 0-0.8 10 ^3/uL Basophils # (Auto) 0 0-0.2 10 ^3/uL Nucleated Red Blood Cells 0.0 % Platelet Estimate Adequate Hypochromasia (manual) Moderate Microcytosis Marked Sodium Level 137 136-145 mmol/L Potassium Level 3.7 3.5-5.1 mmol/L Chloride Level 106 98-107 mmol/L Carbon Dioxide Level 25 20-31 mmol/L Anion Gap 6 5-15 Blood Urea Nitrogen < 5 L 9-23 mg/dL Creatinine 0.47 L 0.550-1.02 mg/dL Glomerular Filtration Rate Calc 131 >90 mL/min BUN/Creatinine Ratio 10.6 10.0-20.0 Serum Glucose 94 74-106 mg/dL Calcium Level 9.1 8.7-10.4 mg/dL Lactic Acid Level 1.3 0.4-2.0 mmol/L Urine Color Yellow Yellow Urine Clarity Clear Clear Urine pH 6.0 5.0-9.0 Urine Specific [place] 1.021 1.001-1.035 Urine Protein Negative Negative Urine Ketones 3+ H Negative Urine Blood Negative Negative /uL Urine Nitrite Negative Negative Urine Bilirubin Negative Negative Urine Urobilinogen Normal Negative mg/dL Urine Leukocyte Esterase 2+ Negative /uL Urine RBC 3 0 - 4 /hpf Urine WBC 5 0 - 5 /hpf Urine Squamous Epithelial Cells Few <5 /hpf Urine Bacteria None seen None Seen /hpf Urine Mucus Few None Seen Urine Glucose Normal Normal mg/dL Total Bilirubin 0.5 0.2-1.0 mg/dL Microbiology Date/Time Source Procedure Growth Status 05/22/24 10:25 Blood Blood Culture - Preliminary NO GROWTH AFTER 24 HOURS OF INCUBATION. Resulted Assessment Possible bile leak s/p Recent history of cholecystectomy Transaminitis Colitis Leukocytosis--> trending Anemia, possibly acute in the setting of recent lap cholecystectomy Obesity Plan: Surgical consult CMP repeat in the A.[facility] Hepatic panel HIDA, MRCP Continue antibiotic Monitor for fluid accumulation in the right pericolic gutter Goal of care discussed more than 19 minutes: Full code Case and plan discussed with Dr. Suarez Plan discussed with: Patient DILLAN ROSAS RESIDENT May 23, 2024 13:51
[2024-05-23 16:00] LABS: Albumin 3.7 g/dL (3.2-4.8); Bilirubin, Direct 0.3 mg/dL (<0.3); Bilirubin, Total 0.6 mg/dL (0.2-1.0); Total Protein 6.1 g/dL (5.7-8.2)
--- NOTE | 2024-05-23 17:08 | DVHINCON2 ---
Date of service: May 23, 2024 Family History: Diabetes mellitus G8 MOTHER FH: schizophrenia G8 FATHER Allergies: Coded Allergies: Aspirin (Verified Allergy, Unknown, 09/14/23) NSAIDs (Verified Allergy, Unknown, 09/14/23) Penicillins (Verified Allergy, Unknown, 09/14/23) Home Meds Active Scripts Ibuprofen (Ibuprofen) 600 Mg Tab, 1 TAB PO Q6HP PRN, #20 TAB Prov:JOSE MANUEL GUTIERREZ PAC 09/15/23 Acetaminophen (Acetaminophen) 500 Mg Tab, 500 MG PO Q4HP PRN, #20 TAB Prov:BRENDAJOSE MANUEL PAC 09/15/23 Current Medications Current Medications Medications (Trade) Dose Ordered Sig/Aisha Route PRN Reason Start Time Stop Time Status Last Admin Levofloxacin 50 ml @ 50 mls/hr 1000,1100 IV 05/23/24 10:00 05/23/24 11:59 DC 05/23/24 16:07 Vital Signs Vital Signs Date Time Temp Pulse Resp B/P (MAP) Pulse Ox O2 Delivery O2 Flow Rate FiO2 05/23/24 16:06 71 16 104/65 05/23/24 13:00 98.3 100 98.3 05/23/24 08:00 Room Air* 0 21 Labs/Diagnostic Data Labs Test 05/23/24 06:34 05/22/24 10:25 05/22/24 09:18 Range/Units White Blood Count 12.5 H 4.4-10.8 10^3/uL Red Blood Count 4.13 4.0-5.20 10^6/uL Hemoglobin 8.8 L 12.2-16.2 g/dL Hematocrit 28.4 #L 36.0-46.0 % Mean Corpuscular Volume 68.9 L 80.0-100.0 fL Mean Corpuscular Hemoglobin 21.3 L 28.0-32.0 pg Mean Corpuscular Hemoglobin Concent 30.9 L 32.0-36.0 g/dL Red Cell Distribution Width 17.5 H 11.8-14.3 % Platelet Count 316 140-450 10^3/uL Mean Platelet Volume 7.6 6.9-10.8 fL Neutrophils (%) (Auto) 81.2 H 37.0-80.0 % Lymphocytes (%) (Auto) 9.3 L 10.0-50.0 % Monocytes (%) (Auto) 8.8 0.0-12.0 % Eosinophils (%) (Auto) 0.4 0.0-7.0 % Basophils (%) (Auto) 0.3 0.0-2.0 % Neutrophils # (Auto) 10.2 H 1.6-8.6 10 ^3/uL Lymphocytes # (Auto) 1.2 0.4-5.4 10 ^3/uL Monocytes # (Auto) 1.1 0-1.3 10 ^3/uL Eosinophils # (Auto) 0 0-0.8 10 ^3/uL Basophils # (Auto) 0 0-0.2 10 ^3/uL Nucleated Red Blood Cells 0.0 % Platelet Estimate Adequate Hypochromasia (manual) Moderate Microcytosis Marked Sodium Level 137 136-145 mmol/L Potassium Level 3.7 3.5-5.1 mmol/L Chloride Level 106 98-107 mmol/L Carbon Dioxide Level 25 20-31 mmol/L Anion Gap 6 5-15 Blood Urea Nitrogen < 5 L 9-23 mg/dL Creatinine 0.47 L 0.550-1.02 mg/dL Glomerular Filtration Rate Calc 131 >90 mL/min BUN/Creatinine Ratio 10.6 10.0-20.0 Serum Glucose 94 74-106 mg/dL Calcium Level 9.1 8.7-10.4 mg/dL Total Bilirubin 0.6 0.2-1.0 mg/dL Direct Bilirubin 0.3 <0.3 mg/dL Aspartate Amino Transferase (AST) 137 H 13-40 U/L Alanine Aminotransferase (ALT) 437 H 7-40 U/L Alkaline Phosphatase 230 H 46-116 U/L Total Protein 6.1 5.7-8.2 g/dL Albumin 3.7 3.2-4.8 g/dL Lactic Acid Level 1.3 0.4-2.0 mmol/L Urine Color Yellow Yellow Urine Clarity Clear Clear Urine pH 6.0 5.0-9.0 Urine Specific [place] 1.021 1.001-1.035 Urine Protein Negative Negative Urine Ketones 3+ H Negative Urine Blood Negative Negative /uL Urine Nitrite Negative Negative Urine Bilirubin Negative Negative Urine Urobilinogen Normal Negative mg/dL Urine Leukocyte Esterase 2+ Negative /uL Urine RBC 3 0 - 4 /hpf Urine WBC 5 0 - 5 /hpf Urine Squamous Epithelial Cells Few <5 /hpf Urine Bacteria None seen None Seen /hpf Urine Mucus Few None Seen Urine Glucose Normal Normal mg/dL Microbiology Date/Time Source Procedure Growth Status 05/22/24 10:25 Blood Blood Culture - Preliminary NO GROWTH AFTER 24 HOURS OF INCUBATION. Resulted Assessment [id number] S/P LAP GAYLE AT ANOTHER FACILITY LFT ELEVATION R/O CBD STONE BILE LEAK MRCP HIDA SCAN IF SURGERY CONSIDERED AND INDICATED TRANSFER TO HIGHER LEVEL OF CARE Plan discussed with: Patient CORDELIA SUGGS MD May 23, 2024 17:08
--- NOTE | 2024-05-23 17:30 | MEDREC ---
[facility] Intervention Section I [facility] Intervention: Review courses of therapy (PATIENT HAS PENICLLINS ALLERGY WITH UNKNOWN REACTIONS. URINE ANALYSIS IS POSITIVE. PLEASE CONSIDER ADDING CIPROFLOXACIN TO COVER FOR POTENTIAL UTI IF NEEDED ) DESTINY VELAZQUEZ May 23, 2024 17:30
--- NOTE | 2024-05-23 21:29 | DVHINCON2 ---
DATE OF CONSULTATION: 05/23/2024 HISTORY OF PRESENT ILLNESS: This patient is 28 years old, coming in with right upper quadrant pain. She had a laparoscopic cholecystectomy done couple of weeks ago at another facility and she did fine and then came back to the Emergency Room at the [facility] with the above symptoms. No nausea or vomiting. No constipation or diarrhea. No hematemesis or melena. No bleeding per rectum. PAST MEDICAL HISTORY: No diabetes or hypertension. PAST SURGICAL HISTORY: Gastric bypass. PHYSICAL EXAMINATION: VITAL SIGNS: Afebrile, stable signs. HEENT: With no evidence of pallor, cyanosis, or jaundice. NECK: Supple, nontender with no thyromegaly or lymphadenopathy. CHEST AND LUNGS: Clear. HEART: Within normal limits. ABDOMEN: Soft, minimally tender. No rebound. EXTREMITIES: Unremarkable. NEUROLOGIC: Intact. CLINICAL IMPRESSION: Status post laparoscopic cholecystectomy. CT scan is indicating postsurgical changes near the stomach in the left upper quadrant and there is a possibility of fluid collection in the right paracolic gutter and rule out possibility of a bile leak at this point, and the liver enzymes are elevated as well as elevated, so my clinical impression is rule out CBD stone, rule out biliary leak. PLAN: Will be to consider MRCP and HIDA scan and then if surgery is indicated then she will have to be transferred to the facility where this gallbladder surgery is to be done or was done. MD PHAM Blunt/LANETTE/MADAY TID: [id number] RECEIPT: [id number] cc: Mariam Ying
--- NOTE | 2024-05-23 22:24 | DVHPN2 ---
Reviewed: Care Plan, H&P, Labs, Medications, Previous Orders, Radiology Changes from previous H/P or p: No Changes General: Per HPI Eyes: No Pain, No Vision change, No Conjunctivae inflammation, No Eyelid inflammation, No Other, No Redness ENT: No Ear pain, No Ear discharge, No Nose pain, No Nose discharge, No Nose congestion, No Mouth pain, No Mouth swelling, No Throat pain, No Throat swelling, No Other Cardiovascular: No Chest Pain, No Palpitations, No Orthopnea, No Paroxysmal Noc. Dyspnea, No Edema, No Lt Headedness, No Other Respiratory: No Cough, No Dry, No Shortness of breath, No SOB with excertion, No Wheezing, No Hemoptysis, No Pleuritic Pain, No Sputum, No Other Gastrointestinal: No Nausea, No Vomiting; Abdominal Pain; No Diarrhea, No Constipation, No Melena, No Hematochezia, No Other Genitourinary: No Dysuria, No Frequency, No Incontinence, No Hematuria, No Retention, No Other Musculoskeletal: No other, No neck pain, No shoulder pain, No arm pain, No back pain, No hand pain, No leg pain, No foot pain Skin: No Rash, No Lesions, No Jaundice, No Bruising, No Other Objective Vitals Vital Signs Date Time Temp Pulse Resp B/P (MAP) Pulse Ox O2 Delivery O2 Flow Rate FiO2 05/23/24 22:19 80 12 96/50 (65) 99 05/23/24 21:00 97.8 97.8 05/23/24 19:30 Room Air* 0 21 Intake/Output Intake and Output 05/23/24 07:00 Intake Total 2500 ml Balance 2500 ml Intake Oral 400 ml IV Total 2100 ml # Voids 16 General Appearance: Alert, Oriented X3, Cooperative, No acute distress HEENT: Atraumatic Lungs: Clear to auscultation Medications Current Medications Medications Dose Ordered Sig/Aisha Route Start Time Stop Time Status Last Admin Dose Admin Acetaminophen/ Hydrocodone Bitart 1 tab Q4HP PRN PO 05/22/24 11:45 05/23/24 19:08 1 TAB Ondansetron HCl 4 mg Q4HP PRN IV 05/22/24 11:45 Metronidazole 100 ml @ 100 mls/hr Q8HR IV 05/22/24 14:00 05/23/24 21:26 100 MLS/HR Pantoprazole Sodium 40 mg DAILY IV 05/22/24 12:30 05/23/24 09:43 40 MG Hydromorphone HCl 0.5 mg Q4HPRN PRN IV 05/22/24 14:45 05/23/24 16:06 0.5 MG Docusate Sodium 100 mg BID PO 05/22/24 15:30 05/23/24 21:28 100 MG Dimethicone 40 mg QID PO 05/22/24 15:30 05/23/24 19:08 40 MG Laboratory Results Laboratory Tests 05/23/24 06:34 Chemistry Test 05/23/24 06:34 Albumin 3.7 g/dL (3.2-4.8) Calcium Level 9.1 mg/dL (8.7-10.4) Total Protein 6.1 g/dL (5.7-8.2) LFT Test 05/23/24 06:34 Alanine Aminotransferase (ALT) 437 U/L (7-40) H Alkaline Phosphatase 230 U/L (46-116) H Aspartate Amino Transferase (AST) 137 U/L (13-40) H Direct Bilirubin 0.3 mg/dL (<0.3) Total Bilirubin 0.6 mg/dL (0.2-1.0) Urinalysis Test 05/22/24 09:18 Urine Color Yellow (Yellow) Urine Clarity Clear (Clear) Urine pH 6.0 (5.0-9.0) Urine Specific [place] 1.021 (1.001-1.035) Urine Protein Negative (Negative) Urine Ketones 3+ (Negative) H Urine Blood Negative /uL (Negative) Urine Nitrite Negative (Negative) Urine Bilirubin Negative (Negative) Urine Urobilinogen Normal mg/dL (Negative) Urine Leukocyte Esterase 2+ /uL (Negative) Urine RBC 3 /hpf (0 - 4) Urine WBC 5 /hpf (0 - 5) Urine Squamous Epithelial Cells Few /hpf (<5) Urine Bacteria None seen /hpf (None Seen) Urine Mucus Few (None Seen) Urine Glucose Normal mg/dL (Normal) Microbiology Microbiology Date/Time Source Procedure Growth Status 05/22/24 10:25 Blood Blood Culture - Preliminary NO GROWTH AFTER 24 HOURS OF INCUBATION. Resulted Assessment/Plan Assessment/Plan Abdominal pain/status post lap foster Admit to medical/surgical Given WBCs 14.8, started on Levaquin and Flagyl Sepsis protocol- blood cultures pending pain medication p.r.n. Zofran p.r.n. nausea Follow up a.m. labs Anemia, possibly acute s/p lap foster Hemoglobin 9.8 g/dL Monitor a.m. labs to trend 05/23/2024: pending MRCP. pain is improved Plan discussed with: Patient Date of Service: May 23, 2024 Billing Provider: IONA QUINTERO DO Common Visit Codes: [id number] INP/OBS CARE(HIGH) IONA QUINTERO DO May 23, 2024 22:24
[2024-05-24 05:00] VITALS: BP 97/58; PULSE 63; RESP 18; TEMP 98; O2SAT 97
[2024-05-24 07:10] LABS: Alanine Aminotransferase 279 U/L (7-40); Albumin 3.7 g/dL (3.2-4.8); Alkaline Phosphatase 206 U/L (46-116); Anion Gap 6 (5-15); Aspartate Aminotransferase 51 U/L (13-40); BUN/Creatinine Ratio 11.3 (10.0-20.0); Blood Urea Nitrogen 6 mg/dL (9-23); Calcium 9.3 mg/dL (8.7-10.4); Carbon Dioxide 26 mmol/L (20-31); Chloride 108 mmol/L (98-107); Glucose 87 mg/dL (74-106); Potassium 3.7 mmol/L (3.5-5.1); Sodium 140 mmol/L (136-145); Total Protein 6.1 g/dL (5.7-8.2)
[2024-05-24 07:37] LABS: Bilirubin, Total 0.5 mg/dL (0.2-1.0)
[2024-05-24 09:00] VITALS: BP 156/64; PULSE 57; RESP 17; TEMP 98.2; O2SAT 95
--- NOTE | 2024-05-24 11:59 | DVH ---
[id number] MRI MRCP MRI Attending Name: LEON IONA Belen COMPARISON: None INDICATION: bile leak TECHNIQUE: Abdominal MRI and MRCP was performed without the use of intravenous contrast using a MRI i maging system. Three-dimensional MRCP was performed using maximum intensity projection reconstruction on an independent workstation under concurrent supervision. FINDINGS: Postoperative changes of gallbladder fossa are noted. A pocket of fluid mixed with air seen in the g allbladder fossa with surrounding fat stranding and trace fluid extending from gallbladder fossa 2 in ferior hepatic surface and to the right paracolic gutter. The common bile duct measures 7-8 mm in ca liber, mildly prominent. No choledocholithiasis or distal obstructing process. Pancreatic duct is nor mal in caliber. Mild pneumoperitoneum likely related to recent surgery. Suggestion of hepatic steatosis. Changes of gastric sleeve surgery noted. No evidence of small-bowel obstruction. Scattered colonic diverticula. Spleen, adrenal glands, kidneys and pancreas are unremark able. Trace bilateral pleural effusions and mild bibasilar subsegmental atelectasis noted. IMPRESSION: 1. Postsurgical changes in keeping with recent laparoscopic cholecystectomy with trace pneumoperitone um, moderate fluid mixed with air in gallbladder fossa and trace fluid extending along the inferior s urface of the liver to the right paracolic gutter which could reflect bile leak, edema or hemorrhage. This can be better evaluated with HIDA scan. 2. Trace bilateral pleural effusions and mild bibasilar subsegmental atelectasis.
[2024-05-24 12:51] VITALS: BP 116/61; PULSE 66; RESP 16; TEMP 98.1; O2SAT 100
--- NOTE | 2024-05-24 14:05 | DVHPN2 ---
Reviewed: Care Plan, H&P, Labs, Medications, Previous Orders, Radiology Changes from previous H/P or p: No Changes General: Per HPI Eyes: No Pain, No Vision change, No Conjunctivae inflammation, No Eyelid inflammation, No Other, No Redness ENT: No Ear pain, No Ear discharge, No Nose pain, No Nose discharge, No Nose congestion, No Mouth pain, No Mouth swelling, No Throat pain, No Throat swelling, No Other Cardiovascular: No Chest Pain, No Palpitations, No Orthopnea, No Paroxysmal Noc. Dyspnea, No Edema, No Lt Headedness, No Other Respiratory: No Cough, No Dry, No Shortness of breath, No SOB with excertion, No Wheezing, No Hemoptysis, No Pleuritic Pain, No Sputum, No Other Gastrointestinal: No Nausea, No Vomiting; Abdominal Pain; No Diarrhea, No Constipation, No Melena, No Hematochezia, No Other Genitourinary: No Dysuria, No Frequency, No Incontinence, No Hematuria, No Retention, No Other Musculoskeletal: No other, No neck pain, No shoulder pain, No arm pain, No back pain, No hand pain, No leg pain, No foot pain Skin: No Rash, No Lesions, No Jaundice, No Bruising, No Other Objective Vitals Vital Signs Date Time Temp Pulse Resp B/P (MAP) Pulse Ox O2 Delivery O2 Flow Rate FiO2 05/24/24 12:51 98.1 66 16 116/61 (79) 100 98.1 05/24/24 08:00 Room Air* 0 21 Intake/Output Intake and Output 05/24/24 07:00 Intake Total 1350 ml Output Total 1000 ml Balance 350 ml Intake Oral 1250 ml IV Total 100 ml Output Urine Total 1000 ml # Voids 4 General Appearance: Alert, Oriented X3, Cooperative, No acute distress HEENT: Atraumatic Lungs: Clear to auscultation Medications Current Medications Medications Dose Ordered Sig/Aisha Route Start Time Stop Time Status Last Admin Dose Admin Acetaminophen/ Hydrocodone Bitart 1 tab Q4HP PRN PO 05/22/24 11:45 05/24/24 13:04 1 TAB Ondansetron HCl 4 mg Q4HP PRN IV 05/22/24 11:45 Metronidazole 100 ml @ 100 mls/hr Q8HR IV 05/22/24 14:00 05/24/24 05:36 100 MLS/HR Pantoprazole Sodium 40 mg DAILY IV 05/22/24 12:30 05/24/24 08:51 40 MG Hydromorphone HCl 0.5 mg Q4HPRN PRN IV 05/22/24 14:45 05/23/24 23:13 0.5 MG Docusate Sodium 100 mg BID PO 05/22/24 15:30 05/24/24 08:50 100 MG Dimethicone 40 mg QID PO 05/22/24 15:30 05/24/24 13:03 40 MG Laboratory Results Laboratory Tests 05/23/24 06:34 05/24/24 06:23 Chemistry Test 05/24/24 06:23 Albumin 3.7 g/dL (3.2-4.8) Calcium Level 9.3 mg/dL (8.7-10.4) Total Protein 6.1 g/dL (5.7-8.2) LFT Test 05/24/24 06:23 Alanine Aminotransferase (ALT) 279 U/L (7-40) H Alkaline Phosphatase 206 U/L (46-116) H Aspartate Amino Transferase (AST) 51 U/L (13-40) H Total Bilirubin 0.5 mg/dL (0.2-1.0) Urinalysis Test 05/22/24 09:18 Urine Color Yellow (Yellow) Urine Clarity Clear (Clear) Urine pH 6.0 (5.0-9.0) Urine Specific [place] 1.021 (1.001-1.035) Urine Protein Negative (Negative) Urine Ketones 3+ (Negative) H Urine Blood Negative /uL (Negative) Urine Nitrite Negative (Negative) Urine Bilirubin Negative (Negative) Urine Urobilinogen Normal mg/dL (Negative) Urine Leukocyte Esterase 2+ /uL (Negative) Urine RBC 3 /hpf (0 - 4) Urine WBC 5 /hpf (0 - 5) Urine Squamous Epithelial Cells Few /hpf (<5) Urine Bacteria None seen /hpf (None Seen) Urine Mucus Few (None Seen) Urine Glucose Normal mg/dL (Normal) Microbiology Microbiology Date/Time Source Procedure Growth Status 05/22/24 10:25 Blood Blood Culture - Preliminary NO GROWTH AFTER 48 HOURS OF INCUBATION. Resulted Labs and/or images reviewed: Labs reviewed by me, Image(s) reviewed by me Assessment/Plan Assessment/Plan Abdominal pain/status post lap foster Admit to medical/surgical Given WBCs 14.8, started on Levaquin and Flagyl Sepsis protocol- blood cultures pending pain medication p.r.n. Zofran p.r.n. nausea Follow up a.m. labs Anemia, possibly acute s/p lap foster Hemoglobin 9.8 g/dL Monitor a.m. labs to trend 05/23/2024: pending MRCP. pain is improved 05/24/2024: Gen surg getting HIDA scan. advance diet to soft Plan discussed with: Patient My Orders Orders - IONA QUINTERO DO Procedure Category Date Status Time Mrcp Mri MRI 05/24/24 Resulted 10:44 Date of Service: May 24, 2024 Billing Provider: IONA QUINTERO DO Common Visit Codes: [id number] INP/OBS CARE(HIGH) IONA QUINTERO DO May 24, 2024 14:05
--- NOTE | 2024-05-24 14:48 | DVHPN2 ---
Progress Note Date Seen: May 24, 2024 Medical Necessity Reason Pt with a Central, PICC or Fol: No Objective vital signs Vital Sign Date Time Temp Pulse Resp B/P (MAP) Pulse Ox O2 Delivery O2 Flow Rate FiO2 05/24/24 12:51 98.1 66 16 116/61 (79) 100 98.1 05/24/24 08:00 Room Air* 0 21 Total Intake and Output 05/23/24 05/23/24 05/24/24 15:00 23:00 07:00 Intake Total 900 ml 450 ml Output Total 1000 ml Balance -100 ml 450 ml medications Current Medications Medications Dose Ordered Sig/Aisha Route Start Time Stop Time Status Last Admin Dose Admin Acetaminophen/ Hydrocodone Bitart 1 tab Q4HP PRN PO 05/22/24 11:45 05/24/24 13:04 1 TAB Ondansetron HCl 4 mg Q4HP PRN IV 05/22/24 11:45 Metronidazole 100 ml @ 100 mls/hr Q8HR IV 05/22/24 14:00 05/24/24 14:20 100 MLS/HR Pantoprazole Sodium 40 mg DAILY IV 05/22/24 12:30 05/24/24 08:51 40 MG Hydromorphone HCl 0.5 mg Q4HPRN PRN IV 05/22/24 14:45 05/23/24 23:13 0.5 MG Docusate Sodium 100 mg BID PO 05/22/24 15:30 05/24/24 08:50 100 MG Dimethicone 40 mg QID PO 05/22/24 15:30 05/24/24 13:03 40 MG laboratory and microbiology Laboratory Tests 05/24/24 06:23 05/23/24 06:34 Test 05/24/24 06:23 Range/Units Serum Glucose 87 74-106 mg/dL Microbiology Date/Time Source Procedure Growth Status 05/22/24 10:25 Blood Blood Culture - Preliminary NO GROWTH AFTER 48 HOURS OF INCUBATION. Resulted Problem List/Assessment/Plan Problem List/Assessment/Plan AFEBRILE VSS ABD SOFT LESS TENDER REPEAT LFT AM POSSIBLE HIIDA SCAN AM Plan discussed with: Patient My Orders My Orders Orders - CORDELIA SUGGS MD Procedure Category Date Status Time Nm Hida Scan NM 05/23/24 Logged 18:05 CORDELIA SUGGS MD May 24, 2024 14:48
[2024-05-24 17:00] VITALS: BP 103/69; PULSE 53; RESP 16; TEMP 98.4; O2SAT 99
--- NOTE | 2024-05-24 19:07 | DVHPN2 ---
Progress Note - Dictate Date Seen: May 24, 2024 Medical Necessity Reason Pt with a Central, PICC or Fol: No Subjective Patient seen at bedside She is sitting up in the bed Abdominal pain has resolved She is tolerating a diet MRCP findings suggestive of a possible bile leak versus hemorrhage Anemia and drop in hemoglobin hematocrit suggestive of possible postoperative bleeding vital signs Vital Sign Date Time Temp Pulse Resp B/P (MAP) Pulse Ox O2 Delivery O2 Flow Rate FiO2 05/24/24 17:00 98.4 53 16 103/69 (80) 99 98.4 05/24/24 08:00 Room Air* 0 21 Total Intake and Output 05/23/24 05/23/24 05/24/24 15:00 23:00 07:00 Intake Total 1000 ml 450 ml Output Total 1000 ml Balance 0 ml 450 ml medications Current Medications Medications Dose Ordered Sig/Aisha Route Start Time Stop Time Status Last Admin Dose Admin Acetaminophen/ Hydrocodone Bitart 1 tab Q4HP PRN PO 05/22/24 11:45 05/24/24 17:13 1 TAB Ondansetron HCl 4 mg Q4HP PRN IV 05/22/24 11:45 Metronidazole 100 ml @ 100 mls/hr Q8HR IV 05/22/24 14:00 05/24/24 14:20 100 MLS/HR Pantoprazole Sodium 40 mg DAILY IV 05/22/24 12:30 05/24/24 08:51 40 MG Hydromorphone HCl 0.5 mg Q4HPRN PRN IV 05/22/24 14:45 05/23/24 23:13 0.5 MG Docusate Sodium 100 mg BID PO 05/22/24 15:30 05/24/24 08:50 100 MG Dimethicone 40 mg QID PO 05/22/24 15:30 05/24/24 17:12 40 MG objective General examination- Not in acute distress HEENT- PEERLA, no acute nasal discharge Cardiovascular- S1-S2 audible, rate and rhythm regular, no murmur Respiratory- CTAB, no wheeze or rhonchi Abd soft nondistended. no abdominal tenderness bowel sound+. passing flatulence Musculoskeletal-no acute joint swelling or tenderness or redness Lower extremity- no leg edema Neurological- cranial nerves intact, no acute dysarthria or dysphagia Psychiatry- denies depression or SI or HI Skin- no acute rash or purpura laboratory and microbiology Laboratory Tests 05/24/24 06:23 05/23/24 06:34 Test 05/24/24 06:23 Range/Units Serum Glucose 87 74-106 mg/dL Problems(with codes): (1) Anemia (2) S/P cholecystectomy (3) RUQ abdominal pain (4) Abnormal finding on GI tract imaging Prognosis Plan Continue observation HIDA scan in a.m. Monitor labs Surgical follow up Patient had surgery done at [facility] Plan discussed with: Patient, Spouse MARIAA SUGGS MD May 24, 2024 19:07
[2024-05-24 21:00] VITALS: BP 93/59; PULSE 83; RESP 20; TEMP 98.3; O2SAT 83
[2024-05-24 22:42] VITALS: BP 103/61; PULSE 63; RESP 16; O2SAT 95
[2024-05-25] VITALS (8 sets, daily range): BP systolic 98–113; BP diastolic 55–76; PULSE 57–87; RESP 16–20; TEMP 97.3–98.4; O2SAT 95–98
[2024-05-25 11:47] LABS: Basophils # (auto) 0 10 ^3/uL (0-0.2); Hemoglobin 9.9 g/dL (12.2-16.2); Monocytes # (auto) 0.8 10 ^3/uL (0-1.3)
[2024-05-25 11:50] LABS: Basophils % (auto) 0.5 % (0.0-2.0); Eosinophils # (auto) 0.1 10 ^3/uL (0-0.8); Eosinophils % (auto) 1.6 % (0.0-7.0); Hematocrit 31.9 % (36.0-46.0); Lymphocytes # (auto) 1.2 10 ^3/uL (0.4-5.4); Lymphocytes % (auto) 14.5 % (10.0-50.0); Mean Corpuscular Hemoglobin 21.6 pg (28.0-32.0); Mean Corpuscular Hgb Conc. 31.1 g/dL (32.0-36.0); Mean Corpuscular Volume 69.4 fL (80.0-100.0); Monocytes % (auto) 8.8 % (0.0-12.0); Neutrophils # (auto) 6.5 10 ^3/uL (1.6-8.6); Neutrophils % (auto) 74.6 % (37.0-80.0); Platelet Count (auto) 412 10^3/uL (140-450); Red Cell Distribution Width 18.4 % (11.8-14.3); White Blood Cell 8.6 10^3/uL (4.4-10.8)
[2024-05-25 11:55] LABS: Chloride 107 mmol/L (98-107); Potassium 3.8 mmol/L (3.5-5.1); Sodium 142 mmol/L (136-145)
[2024-05-25 11:56] LABS: Anion Gap 6 (5-15); Calcium 9.9 mg/dL (8.7-10.4); Carbon Dioxide 29 mmol/L (20-31)
[2024-05-25 12:01] LABS: BUN/Creatinine Ratio 12.7 (10.0-20.0); Blood Urea Nitrogen 9 mg/dL (9-23); Glucose 91 mg/dL (74-106)
--- NOTE | 2024-05-25 12:58 | DVHPN2 ---
Subjective Patient states that her abdominal pain has improved. She also reports tolerating p.o. intake without any nausea/vomiting, or abdominal pain. Reviewed: Care Plan, H&P, Labs, Medications, Previous Orders, Radiology Changes from previous H/P or p: No Changes General: Per HPI Eyes: No Pain, No Vision change, No Conjunctivae inflammation, No Eyelid inflammation, No Other, No Redness ENT: No Ear pain, No Ear discharge, No Nose pain, No Nose discharge, No Nose congestion, No Mouth pain, No Mouth swelling, No Throat pain, No Throat swelling, No Other Cardiovascular: No Chest Pain, No Palpitations, No Orthopnea, No Paroxysmal Noc. Dyspnea, No Edema, No Lt Headedness, No Other Respiratory: No Cough, No Dry, No Shortness of breath, No SOB with excertion, No Wheezing, No Hemoptysis, No Pleuritic Pain, No Sputum, No Other Gastrointestinal: No Nausea, No Vomiting; Abdominal Pain; No Diarrhea, No Constipation, No Melena, No Hematochezia, No Other Genitourinary: No Dysuria, No Frequency, No Incontinence, No Hematuria, No Retention, No Other Musculoskeletal: No other, No neck pain, No shoulder pain, No arm pain, No back pain, No hand pain, No leg pain, No foot pain Skin: No Rash, No Lesions, No Jaundice, No Bruising, No Other Objective Vitals Vital Signs Date Time Temp Pulse Resp B/P (MAP) Pulse Ox O2 Delivery O2 Flow Rate FiO2 05/25/24 09:00 98.4 62 18 113/71 (85) 98 98.4 05/25/24 08:00 Room Air* 0 21 Intake/Output Intake and Output 05/25/24 07:00 Intake Total 1325 ml Output Total 400 ml Balance 925 ml Intake Oral 1125 ml IV Total 200 ml Output Urine Total 400 ml # Voids 5 General Appearance: Alert, Oriented X3, Cooperative, No acute distress HEENT: Atraumatic, PERRLA Lungs: Clear to auscultation Cardiovascular: Normal S1, Normal S2 Abdomen: Normal bowel sounds, Soft, No tenderness, No hepatospenomegaly Neuro: Normal gait Psych/Mental Status: Mental status NL, Mood NL Medications Current Medications Medications Dose Ordered Sig/Aisha Route Start Time Stop Time Status Last Admin Dose Admin Acetaminophen/ Hydrocodone Bitart 1 tab Q4HP PRN PO 11/1/24 11:45 05/24/24 22:42 1 TAB Ondansetron HCl 4 mg Q4HP PRN IV 05/22/24 11:45 Metronidazole 100 ml @ 100 mls/hr Q8HR IV 05/22/24 14:00 05/25/24 05:27 100 MLS/HR Pantoprazole Sodium 40 mg DAILY IV 05/22/24 12:30 05/25/24 10:15 40 MG Hydromorphone HCl 0.5 mg Q4HPRN PRN IV 05/22/24 14:45 05/23/24 23:13 0.5 MG Docusate Sodium 100 mg BID PO 05/22/24 15:30 05/25/24 10:15 100 MG Dimethicone 40 mg QID PO 05/22/24 15:30 05/25/24 11:43 40 MG Laboratory Results Laboratory Tests 05/25/24 11:30 Chemistry Test 05/25/24 11:30 Calcium Level 9.9 mg/dL (8.7-10.4) Urinalysis Test 05/22/24 09:18 Urine Color Yellow (Yellow) Urine Clarity Clear (Clear) Urine pH 6.0 (5.0-9.0) Urine Specific [place] 1.021 (1.001-1.035) Urine Protein Negative (Negative) Urine Ketones 3+ (Negative) H Urine Blood Negative /uL (Negative) Urine Nitrite Negative (Negative) Urine Bilirubin Negative (Negative) Urine Urobilinogen Normal mg/dL (Negative) Urine Leukocyte Esterase 2+ /uL (Negative) Urine RBC 3 /hpf (0 - 4) Urine WBC 5 /hpf (0 - 5) Urine Squamous Epithelial Cells Few /hpf (<5) Urine Bacteria None seen /hpf (None Seen) Urine Mucus Few (None Seen) Urine Glucose Normal mg/dL (Normal) Microbiology Microbiology Date/Time Source Procedure Growth Status 05/22/24 10:25 Blood Blood Culture - Preliminary NO GROWTH AFTER 72 HOURS OF INCUBATION. Resulted Labs and/or images reviewed: Labs reviewed by me, Image(s) reviewed by me Assessment/Plan Assessment/Plan Impression: -patient is status post laparoscopic cholecystectomy. Rule out biliary leak -transaminitis -history of gastric bypass surgery -obesity -sepsis -rule out colitis Plan: -patient had MRCP with questionable biliary leak. Patient was status post HIDA scan today with results pending. -patient denies any symptoms at this time. Repeat CMP -continue antibiotic therapy with Flagyl. No known improvement with leukocytosis -restart diet if HIDA scan is negative -long discussion made with the patient and . Apparently, the patient had laparoscopic cholecystectomy the previous Saturday, proximally one week ago at [facility] by Dr. Singh. Discussed with the patient that if she was positive for a biliary leak, efforts will be made to have her transferred back to [facility] for further surgical intervention. Both the patient and has been verbalize in agreement. Total time spent with patient discussing and formulating plan of care: 35 minutes. Total time spent with patient and family regarding advance care plannin minutes. This medical document was created using an electronic medical record system with [employer] dictation system. Although this document has been carefully reviewed, there may still be some phonetic and typographical errors. These areas are purely typographical due to imperfections of the software programs, and do not reflect any compromise in the patient's medical care. Plan discussed with: Patient, Spouse, Other (RN) Date of Service: May 25, 2024 Billing Provider: MAYELA JURADO NP Common Visit Codes: 16975-[id number] INP/OBS CARE(HIGH) Secondary Visit Codes: 69914-[id number] CARE PLAN 30 MINUTES MAYELA JURADO NP May 25, 2024 12:58
[2024-05-25 13:23] LABS: Alanine Aminotransferase 233 U/L (7-40); Albumin 4.2 g/dL (3.2-4.8); Alkaline Phosphatase 224 U/L (46-116); Anion Gap 6 (5-15); Aspartate Aminotransferase 33 U/L (13-40); BUN/Creatinine Ratio 10.5 (10.0-20.0); Blood Urea Nitrogen 8 mg/dL (9-23); Calcium 9.7 mg/dL (8.7-10.4); Carbon Dioxide 29 mmol/L (20-31); Chloride 108 mmol/L (98-107); Glucose 91 mg/dL (74-106); Sodium 143 mmol/L (136-145)
[2024-05-25 13:24] LABS: Bilirubin, Total 0.4 mg/dL (0.2-1.0); Total Protein 6.7 g/dL (5.7-8.2)
--- NOTE | 2024-05-25 18:52 | DVHPN2 ---
Progress Note - Dictate Date Seen: May 25, 2024 Medical Necessity Reason Pt with a Central, PICC or Fol: No Subjective Abdominal pain has resolved She is tolerating a diet MRCP findings suggestive of a possible bile leak versus hemorrhage Anemia and drop in hemoglobin hematocrit suggestive of possible postoperative bleeding Hb improved today to 9.9 vital signs Vital Sign Date Time Temp Pulse Resp B/P (MAP) Pulse Ox O2 Delivery O2 Flow Rate FiO2 05/25/24 17:00 98.1 60 16 110/76 (87) 98 98.1 05/25/24 08:00 Room Air* 0 21 Total Intake and Output 05/24/24 05/24/24 05/25/24 15:00 23:00 07:00 Intake Total 1325 ml Output Total 400 ml Balance 1325 ml -400 ml medications Current Medications Medications Dose Ordered Sig/Aisha Route Start Time Stop Time Status Last Admin Dose Admin Acetaminophen/ Hydrocodone Bitart 1 tab Q4HP PRN PO 05/22/24 11:45 05/25/24 17:19 1 TAB Ondansetron HCl 4 mg Q4HP PRN IV 05/22/24 11:45 Metronidazole 100 ml @ 100 mls/hr Q8HR IV 05/22/24 14:00 05/25/24 14:21 100 MLS/HR Pantoprazole Sodium 40 mg DAILY IV 05/22/24 12:30 05/25/24 10:15 40 MG Hydromorphone HCl 0.5 mg Q4HPRN PRN IV 05/22/24 14:45 05/23/24 23:13 0.5 MG Docusate Sodium 100 mg BID PO 05/22/24 15:30 05/25/24 10:15 100 MG Dimethicone 40 mg QID PO 05/22/24 15:30 05/25/24 17:19 40 MG objective General examination- Not in acute distress HEENT- PEERLA, no acute nasal discharge Cardiovascular- S1-S2 audible, rate and rhythm regular, no murmur Respiratory- CTAB, no wheeze or rhonchi Abd soft nondistended. no abdominal tenderness bowel sound+. passing flatulence Musculoskeletal-no acute joint swelling or tenderness or redness Lower extremity- no leg edema Neurological- cranial nerves intact, no acute dysarthria or dysphagia Psychiatry- denies depression or SI or HI Skin- no acute rash or purpura laboratory and microbiology Laboratory Tests 05/25/24 11:30 Test 05/25/24 11:30 Range/Units Serum Glucose 91 74-106 mg/dL IMPRESSION: 1. Postsurgical changes in keeping with recent laparoscopic cholecystectomy with trace pneumoperitoneum, moderate fluid mixed with air in gallbladder fossa and trace fluid extending along the inferior surface of the liver to the right paracolic gutter which could reflect bile leak, edema or hemorrhage. This can be better evaluated with HIDA scan. 2. Trace bilateral pleural effusions and mild bibasilar subsegmental atelectasis. Problems(with codes): (1) Abnormal finding on GI tract imaging (2) RUQ abdominal pain (3) Anemia Prognosis PLAN Await HIDA scan results Patient has no fever and her leukocytosis is improving and LFTs are trending down H&H is now stable; I suspect patient may have had a small hemorrhage at the postoperative site A bile leak would likely have caused more pain and elevated bilirubin; awaiting HIDA scan results to rule that out If there was no evidence of a bile leak then continue supportive care Patient is on a soft mechanical diet and on IV Flagyl, ppi and Zofran as needed Plan discussed with: Patient, Spouse MARIAA SUGGS MD May 25, 2024 18:52
--- NOTE | 2024-05-25 20:50 | DVHPN2 ---
Progress Note Date Seen: May 25, 2024 Medical Necessity Reason Pt with a Central, PICC or Fol: No Objective vital signs Vital Sign Date Time Temp Pulse Resp B/P (MAP) Pulse Ox O2 Delivery O2 Flow Rate FiO2 05/25/24 17:00 98.1 60 16 110/76 (87) 98 98.1 05/25/24 08:00 Room Air* 0 21 Total Intake and Output 05/24/24 05/24/24 05/25/24 15:00 23:00 07:00 Intake Total 1325 ml Output Total 400 ml Balance 1325 ml -400 ml medications Current Medications Medications Dose Ordered Sig/Aisha Route Start Time Stop Time Status Last Admin Dose Admin Acetaminophen/ Hydrocodone Bitart 1 tab Q4HP PRN PO 05/22/24 11:45 05/25/24 17:19 1 TAB Ondansetron HCl 4 mg Q4HP PRN IV 05/22/24 11:45 Metronidazole 100 ml @ 100 mls/hr Q8HR IV 05/22/24 14:00 05/25/24 14:21 100 MLS/HR Pantoprazole Sodium 40 mg DAILY IV 05/22/24 12:30 05/25/24 10:15 40 MG Hydromorphone HCl 0.5 mg Q4HPRN PRN IV 05/22/24 14:45 05/23/24 23:13 0.5 MG Docusate Sodium 100 mg BID PO 05/22/24 15:30 05/25/24 10:15 100 MG Dimethicone 40 mg QID PO 05/22/24 15:30 05/25/24 17:19 40 MG laboratory and microbiology Laboratory Tests 05/25/24 11:30 Test 05/25/24 11:30 Range/Units Serum Glucose 91 74-106 mg/dL Microbiology Date/Time Source Procedure Growth Status 05/22/24 10:25 Blood Blood Culture - Preliminary NO GROWTH AFTER 72 HOURS OF INCUBATION. Resulted Problem List/Assessment/Plan Problem List/Assessment/Plan AFEBRILE VSS ABD SOFT LESS TENDER REPEAT LFT AM HIIDA SCAN PENDING CONTINUE CLOSE OBSERVATION Plan discussed with: Patient CORDELIA SUGGS MD May 25, 2024 20:50
[2024-05-26 01:00] VITALS: BP 101/63; PULSE 79; RESP 18; TEMP 98.2; O2SAT 97
[2024-05-26 05:00] VITALS: BP 94/66; PULSE 68; RESP 18; TEMP 97.6; O2SAT 99
[2024-05-26 07:25] LABS: Alanine Aminotransferase 155 U/L (7-40); Albumin 3.8 g/dL (3.2-4.8); Alkaline Phosphatase 178 U/L (46-116); Anion Gap 7 (5-15); Aspartate Aminotransferase 27 U/L (13-40); BUN/Creatinine Ratio 13.2 (10.0-20.0); Blood Urea Nitrogen 7 mg/dL (9-23); Calcium 9.5 mg/dL (8.7-10.4); Carbon Dioxide 26 mmol/L (20-31); Chloride 108 mmol/L (98-107); Glucose 83 mg/dL (74-106); Potassium 3.8 mmol/L (3.5-5.1); Sodium 141 mmol/L (136-145)
[2024-05-26 07:26] LABS: Bilirubin, Total 0.4 mg/dL (0.2-1.0); Total Protein 6.3 g/dL (5.7-8.2)
--- NOTE | 2024-05-26 09:03 | DVH ---
Procedure: HIDA Exam Date: 05/25/2024 08:18 AM Clinical History: Postop Comparison Study: None Nuclear Medicine Hepatobiliary Scan. Technique: Following the intravenous administration of 6 mCi of technetium 99m labeled Choletec multiple planar abdominal planar images were obtained in anterior projection in 5 minute intervals for45 minutes . Right lateral images were obtained at 45 minutes after injection. Findings: The liver appears grossly normal in size. No evidence for bile leak. Impression: No evidence for bile leak. IC SUPERVISOR JAYLIN
[2024-05-26] MEDS ORDERED: METR-344 PO (09:47)
--- NOTE | 2024-05-26 10:20 | DVHDS2 ---
Discharge Summary Date of Admission May 22, 2024 at 11:43 Date of Discharge: May 26, 2024 Admitting Diagnosis Abdominal pain Labs/Diagnostic Data: Laboratory Results Test 05/26/24 05:48 05/25/24 11:30 05/23/24 06:34 05/22/24 10:25 Sodium Level 141 mmol/L (136-145) Potassium Level 3.8 mmol/L (3.5-5.1) Chloride Level 108 mmol/L (98-107) Carbon Dioxide Level 26 mmol/L (20-31) Anion Gap 7 (5-15) Blood Urea Nitrogen 7 mg/dL (9-23) Creatinine 0.53 mg/dL (0.550-1.02) Glomerular Filtration Rate Calc 128 mL/min (>90) BUN/Creatinine Ratio 13.2 (10.0-20.0) Serum Glucose 83 mg/dL (74-106) Calcium Level 9.5 mg/dL (8.7-10.4) Total Bilirubin 0.4 mg/dL (0.2-1.0) Aspartate Amino Transferase (AST) 27 U/L (13-40) Alanine Aminotransferase (ALT) 155 U/L (7-40) Alkaline Phosphatase 178 U/L (46-116) Total Protein 6.3 g/dL (5.7-8.2) Albumin 3.8 g/dL (3.2-4.8) White Blood Count 8.6 10^3/uL (4.4-10.8) Red Blood Count 4.60 10^6/uL (4.0-5.20) Hemoglobin 9.9 g/dL (12.2-16.2) Hematocrit 31.9 % (36.0-46.0) Mean Corpuscular Volume 69.4 fL (80.0-100.0) Mean Corpuscular Hemoglobin 21.6 pg (28.0-32.0) Mean Corpuscular Hemoglobin Concent 31.1 g/dL (32.0-36.0) Red Cell Distribution Width 18.4 % (11.8-14.3) Platelet Count 412 10^3/uL (140-450) Mean Platelet Volume 7.6 fL (6.9-10.8) Neutrophils (%) (Auto) 74.6 % (37.0-80.0) Lymphocytes (%) (Auto) 14.5 % (10.0-50.0) Monocytes (%) (Auto) 8.8 % (0.0-12.0) Eosinophils (%) (Auto) 1.6 % (0.0-7.0) Basophils (%) (Auto) 0.5 % (0.0-2.0) Neutrophils # (Auto) 6.5 10 ^3/uL (1.6-8.6) Lymphocytes # (Auto) 1.2 10 ^3/uL (0.4-5.4) Monocytes # (Auto) 0.8 10 ^3/uL (0-1.3) Eosinophils # (Auto) 0.1 10 ^3/uL (0-0.8) Basophils # (Auto) 0 10 ^3/uL (0-0.2) Nucleated Red Blood Cells 0.0 % Platelet Estimate Adequate Hypochromasia (manual) Moderate Microcytosis Marked Direct Bilirubin 0.3 mg/dL (<0.3) Lactic Acid Level 1.3 mmol/L (0.4-2.0) Test 05/22/24 09:18 Urine Color Yellow (Yellow) Urine Clarity Clear (Clear) Urine pH 6.0 (5.0-9.0) Urine Specific [place] 1.021 (1.001-1.035) Urine Protein Negative (Negative) Urine Ketones 3+ (Negative) Urine Blood Negative /uL (Negative) Urine Nitrite Negative (Negative) Urine Bilirubin Negative (Negative) Urine Urobilinogen Normal mg/dL (Negative) Urine Leukocyte Esterase 2+ /uL (Negative) Urine RBC 3 /hpf (0 - 4) Urine WBC 5 /hpf (0 - 5) Urine Squamous Epithelial Cells Few /hpf (<5) Urine Bacteria None seen /hpf (None Seen) Urine Mucus Few (None Seen) Urine Glucose Normal mg/dL (Normal) Other Laboratory Tests 05/26/24 05:48 05/25/24 11:30 Brief Hx & Hospital Course: History of Present Illness 28-year-old female presented to the ED via EMS for chief complaint of abdominal pain which began when she woke up this morning. Patient had a lap foster performed on Saturday05/19/2024, at a hospital in [place], patient was discharged the same day. Patient states there were no complications after procedure. Patient was scheduled to see surgeon in 2 weeks. Patient's did inform the surgeon that patient was in the hospital. Patient also endorses feeling tired, patient has been taking [place] around the clock until she ran out. Patient does endorse any fevers, chills, nausea, vomiting or diarrhea. Patient denies chest pain, headache, dizziness, diaphoresis, shortness of breath. Patient was admitted for further evaluation medical management. Course of hospitalization: CT scan of the abdomen and pelvis revealed normal findings status post cholecystectomy as well as mild colitis. The patient did have elevated LFTs. Surgical consultation was obtained. MRCP was performed on the patient to rule out CBD obstruction. Results of the following: IMPRESSION: 1. Postsurgical changes in keeping with recent laparoscopic cholecystectomy with trace pneumoperitoneum, moderate fluid mixed with air in gallbladder fossa and trace fluid extending along the inferior surface of the liver to the right paracolic gutter which could reflect bile leak, edema or hemorrhage. This can be better evaluated with HIDA scan. Given questionable bile leak, patient underwent HIDA scan which revealed the following: PATIENT: CHRISTINA MACEDOACCT: [id number] UNIT: [id number] : 1995 LOC: CENTRAL ROOM / BED: [address] [place] [address] AGE / SEX: 28 / F ADM STATUS: ADM IN SERVICE 04 ORDERING PHYSICIAN: CORDELIA SUGGS MD PROCEDURE(s): GBNM - NM HIDA SCAN REASON: BILE LEAK ORDER NUMBER(s): [id number], ACCESSION NUMBER(s): [id number] Procedure: HIDA Exam Date: 05/25/2024 08:18 AM Clinical History: Postop Comparison Study: None Nuclear Medicine Hepatobiliary Scan. Technique: Following the intravenous administration of 6 mCi of technetium 99m labeled Choletec multiple planar abdominal planar images were obtained in anterior projection in 5 minute intervals for45 minutes . Right lateral images were obtained at 45 minutes after injection. Findings: The liver appears grossly normal in size. No evidence for bile leak. Impression: No evidence for bile leak. L SPRAY OPERATOR DICTATED BY: KARAN VILLARREAL MD DICTATED DATE/TIME: 05/25/24 1227 SIGNED BY: KARAN VILLARREAL MD SIGNED DATE/TIME: 05/26/24 0903 The patient's LFTs have also improved. The patient has been tolerating oral intake. Her abdominal pain has improved to the point where she does not requiring any oral or IV analgesics. She was agreeable to be discharged home and follow up with her surgeon this week, Dr. Singh. She will be continued on antibiotic therapy with Flagyl 500 mg p.o. 3 times a day for the additional five days. Physical examination General: Alert and Oriented x3. No acute distress. Well-nourished. Eyes: EOMI. Anicteric. HENT: Moist mucous membranes. Lungs: Clear to auscultation bilaterally. No accessory muscle use. Cardiovascular: Regular rate and rhythm. No murmur. No JVD. Abdomen: Soft, non-tender and non-distended. No palpable masses. Extremities: No edema. Non-tender. Skin: No rashes or lesions. Warm. Neurologic: No focal neurological deficits. CN II-XII grossly intact, but not individually tested. Psychiatric: Cooperative. Appropriate mood and affect. Total time spent with patient discussing and formulating plan of care: 35 minutes. This medical document was created using an electronic medical record system with [employer]andseek dictation system. Although this document has been carefully reviewed, there may still be some phonetic and typographical errors. These areas are purely typographical due to imperfections of the software programs, and do not reflect any compromise in the patient's medical care. Consults/Reason for consult General surgeon: Status post cholecystectomy, questionable biliary leak Condition at Discharge: Fair Final Diagnosis/Problems List Sepsis with Colitis Secondary Diagnosis: -patient is status post laparoscopic cholecystectomy. Ruled out biliary leak -transaminitis -history of gastric bypass surgery -obesity -sepsis Discharge Disposition: Home Discharge Instruct/Medications Diet: Regular Activity: No Restrictions, As Tolerated Follow Up/Referral: Dr. Wagner this week Medications: Flagyl 500mg po TID x 5 days 36 Discharge Statement: "Patient was advised to return to the ER or call 911 if any headaches, dizziness, shortness of breath, chest pain, abdominal pain, bleeding, fevers, or worsening of medical condition. Patient was counseled about treatment plan, medications, possible side effects, patientverbalized understanding. All questions were answered to the best of my ability. This discharge took greater then 30 minutes in planning, reviewing documentation, counseling the patient, and discussing with other team members." ASSESSMENT ASSESSMENT Assessment Sepsis with Colitis Date of Service: May 26, 2024 Billing Provider: MAYELA JURADO NP Common Visit Codes: 92561-QHO/OBS DISCH DAY >30min MAYELA JURADO NP May 26, 2024 10:20
--- NOTE | 2024-05-26 18:04 | DVHPN2 ---
Progress Note - Dictate Date Seen: May 26, 2024 (Late entryPatient seen at 2:00 p.m.) Medical Necessity Reason Pt with a Central, PICC or Fol: No Subjective Abdominal pain has resolved She is tolerating a diet MRCP findings suggestive of a possible bile leak versus hemorrhage Anemia and drop in hemoglobin hematocrit suggestive of possible postoperative bleeding Hb improved today to 9.9 Liver enzymes are trending down HIDA scan was negative for a bile leak vital signs Vital Sign Date Time Temp Pulse Resp B/P (MAP) Pulse Ox O2 Delivery O2 Flow Rate FiO2 05/26/24 08:00 Room Air* 0 21 05/26/24 05:00 97.6 68 18 94/66 (75) 99 97.6 Total Intake and Output 05/25/24 05/25/24 05/26/24 14:59 22:59 06:59 Intake Total 580 ml 900 ml Balance 580 ml 900 ml objective General examination- Not in acute distress HEENT- PEERLA, no acute nasal discharge Cardiovascular- S1-S2 audible, rate and rhythm regular, no murmur Respiratory- CTAB, no wheeze or rhonchi Abd soft nondistended. no abdominal tenderness bowel sound+. passing flatulence Musculoskeletal-no acute joint swelling or tenderness or redness Lower extremity- no leg edema Neurological- cranial nerves intact, no acute dysarthria or dysphagia Psychiatry- denies depression or SI or HI Skin- no acute rash or purpura laboratory and microbiology Laboratory Tests 05/26/24 05:48 05/25/24 11:30 Test 05/26/24 05:48 Range/Units Serum Glucose 83 74-106 mg/dL Problems(with codes): (1) Abnormal finding on GI tract imaging (2) RUQ abdominal pain (3) Anemia (4) S/P cholecystectomy Prognosis Plan Continue supportive care for now Patient's diet has been advanced Discharge planning is in progress Patient will follow up with her surgeon as an outpatient for her postop visit Patient advised to return to the ER if her symptoms recur or if she has worsening pain Plan discussed with: Patient MARIAA SUGGS MD May 26, 2024 18:04
== END 2024-05-26 14:52 | disposition home or self-care (01) | DRG 720 ==
LOC: EDBD 07:56 → ER 07:56 → OVERFLOW 11:43 → CENTRAL 13:16
PROVIDERS: ADMIT Internal Medicine; ATTEND Nurse Practitioner Acute Care
DX: A41.9 Sepsis, unspecified organism (principal); A09 Infectious gastroenteritis and colitis, unspecified; D64.9 Anemia, unspecified; E66.9 Obesity, unspecified; R74.01 Elevation of levels of liver transaminase levels; Z88.6 Allergy status to analgesic agent; Z90.49 Acquired absence of other specified parts of digestive tract; Z83.3 Family history of diabetes mellitus; Z81.8 Family history of other mental and behavioral disorders; Z88.0 Allergy status to penicillin; Z98.84 Bariatric surgery status; Z68.34 Body mass index [BMI] 34.0-34.9, adult; Z79.899 Other long term (current) drug therapy
CPT/HCPCS: 36415; 74177; 74181; 78226; 80048; 80053; 80076; 81001; 82247; 83605; 85025; 87040; 99291; G0378; J2405; J2470; J3490

== ENCOUNTER 2024-07-09 19:52 | Emergency (ER) | payer MEDICAID ==
[~2024-07-09] VITALS: Ht 160 cm; Wt 74.6 kg
[~2024-07-09 19:52] MED LIST changes: +METR-344 PO
[2024-07-09 20:29] LABS: Basophils # (auto) 0.1 10 ^3/uL (0-0.2); Eosinophils # (auto) 0.1 10 ^3/uL (0-0.8); Hematocrit 30.9 % (36.0-46.0); Mean Corpuscular Hemoglobin 20.8 pg (28.0-32.0); Monocytes # (auto) 0.8 10 ^3/uL (0-1.3)
[2024-07-09 20:31] LABS: Basophils % (auto) 0.8 % (0.0-2.0); Eosinophils % (auto) 1.5 % (0.0-7.0); Hemoglobin 9.5 g/dL (12.2-16.2); Lymphocytes # (auto) 3.3 10 ^3/uL (0.4-5.4); Mean Corpuscular Hgb Conc. 30.6 g/dL (32.0-36.0); Monocytes % (auto) 8.7 % (0.0-12.0); Neutrophils # (auto) 5.3 10 ^3/uL (1.6-8.6); Nucleated Red Blood Cells % 0.2 %; Platelet Count (auto) 444 10^3/uL (140-450); Red Blood Cells 4.55 10^6/uL (4.0-5.20); Red Cell Distribution Width 17.2 % (11.8-14.3); White Blood Cell 9.7 10^3/uL (4.4-10.8)
[2024-07-09 20:48] LABS: Alanine Aminotransferase 23 U/L (7-40); Alkaline Phosphatase 105 U/L (46-116); Anion Gap 6 (5-15); Aspartate Aminotransferase 25 U/L (13-40); BUN/Creatinine Ratio 18.8 (10.0-20.0); Bilirubin, Total 0.3 mg/dL (0.2-1.0); Blood Urea Nitrogen 16 mg/dL (9-23); Calcium 10.3 mg/dL (8.7-10.4); Carbon Dioxide 26 mmol/L (20-31); Potassium 4.3 mmol/L (3.5-5.1); Sodium 140 mmol/L (136-145)
[2024-07-09 20:49] LABS: Albumin 4.8 g/dL (3.2-4.8); Chloride 108 mmol/L (98-107); Glucose 70 mg/dL (74-106); Total Protein 7.5 g/dL (5.7-8.2)
--- NOTE | 2024-07-09 20:52 | ED.PDOC ---
GI ASSESSMENT HPI Comments 29-year-old female who came to ER for abdominal pain. Patient recently underwent cholecystectomy last month. States for the past 6 days she has been having intermittent episodes of left upper quadrant abdominal pain, aching, worsens with movements. Denies nausea, vomiting, or changes in bowel habits. Denies any urinary problems or fever. Chief Complaint: Abdominal pain Time Seen by MD: 20:52 Primary Care Provider: NONE Reviewed Notes: Nurses Notes Allergies: Coded Allergies: Aspirin (Verified Allergy, Unknown, 09/14/23) NSAIDs (Verified Allergy, Unknown, 09/14/23) Penicillins (Verified Allergy, Unknown, 09/14/23) Home Meds Active Scripts Famotidine (PEPCID TABLET) 20 Mg Tb, 1 TAB PO BID PRN for 30 Days, #60 TAB 3 Refills Prov:KEMAL ALBA MD 07/09/24 Sulfamethoxazole W/Trimethopri (Bactrim Ds Tablet) 1 Tab Tb, 1 TAB PO BID for 7 Days, #14 TAB Prov:KEMAL ALBA MD 07/09/24 Metronidazole (Flagyl) 500 Mg Tab, 1 TAB PO TID for 5 Days, #15 TAB Prov:MAYELA JURADO NP 05/26/24 Ibuprofen (Ibuprofen) 600 Mg Tab, 1 TAB PO Q6HP PRN, #20 TAB Prov:JOSE MANUEL GUTIERREZ PAC 09/15/23 Acetaminophen (Acetaminophen) 500 Mg Tab, 500 MG PO Q4HP PRN, #20 TAB Prov:JOSE MANUEL GUTIERREZ PAC 09/15/23 Information Source: Patient Mode of Arrival: Ambulatory Timing: Days Duration: Intermittent Prehospital treatment: None Quality: Aching Vomitus: None Stool: Normal Severity: Moderate Recent: Recent Surgery Recent Hx of: Abdominal Surgery Pain Location: LUQ Modifying Factors: Nothing Associated sign and symptoms: Abdominal Pain Past Medical History PAST MEDICAL HISTORY: Denies Surgical History: Cholecystectomy [employer] History: No Pertinent [employer] History Family History Family History: Reviewed,noncontributory to illness, No family hx of Cancer, No family hx of DM, No family hx of Heart dmitriy, No family hx of HTN, No family hx ofKidney dmitriy, No family hx of Liver dmitriy, No family hx of Lung dmitriy, No family hx of Stroke Social History Smoker: Non-Smoker Alcohol: Denies ETOH Use Drugs: Denies Drug Use Lives In: Home Constitutional: denies: chills, diaphoresis, fatigue, fever, malaise, sweats, weakness, others EENTM: denies: blurred vision, double vision, ear bleeding, ear discharge, ear drainage, ear pain, ear ringing, eye pain, eye redness, hearing loss, mouth pain, mouth swelling, nasal discharge, nose bleeding, nose congestion, nose pain , photophobia, tearing, throat pain, throat swelling, voice changes, others Respiratory: denies: cough, hemoptysis, orthopnea, SOB at rest, shortness of breath, SOB with excertion, stridor, wheezing, others Cardiovascular: denies: chest pain, dizzy spells, diaphoresis, Dyspnea on exertion, edema, irregular heart beat, left arm pain, lightheadedness, palpitations, PND, syncope, others Gastrointestinal: reports: abdominal pain; denies: abdomen distended, blood streaked bowels, constipated, diarrhea, dysphagia, difficulty swallowing, hematemesis, melena, nausea, poor appetite, poor fluid intake, rectal bleeding, rectal pain, vomiting, others Genitourinary: denies: abnormal vagina bleeding, burning, dyspareunia, dysuria, flank pain, frequency, hematuria, incontinence, pain, , vagina discharge, urgency, others Neurological: denies: dizziness, fainting, headache, left sided numbness, left sided weakness, numbness, paresthesia, pre-existing deficit, right sided numbness, right sided weakness, seizure, speech problems, tingling, tremors, weakness, others Musculoskeletal: denies: back pain, gout, joint pain, joint swelling, muscle pain, muscle stiffness, neck pain, others Integumetry: denies: bruises, change in color, change in hair/nails, dryness, laceration, lesions, lumps, rash, wounds, others Allergic/Immunocompromised: denies: Difficulty Healing, Frequent Infections, Hives, Itching, others Hematologic/Lymphatic: denies: anemia, blood clots, easy bleeding, easy bruising, swollen glands, others Endocrine: denies: excessive hunger, excessive sweating, excessive thirst, excessive urination, flushing, intolerance to cold, intolerance to heat, unexplained weight gain, unexplained weight loss, others Psychiatric: denies: anxiety, bipolar disorder, depression, hopeless, panic disorder, schizophrenia, sleepless, suicidal, others Physical Exam General Appearance: No Apparent Distress, Normal HEENT: Normal ENT Inspection, Pharynx Normal, TMs Normal Neck: Full Range of Motion, Non-Tender, Normal, Normal Inspection Respiratory: Chest Non-Tender, Lungs Clear, No Accessory Muscle Use, No Respiratory Distress, Normal Breath Sounds Cardiovascular: No Edema, No JVD, No Murmur, No Gallop, Normal Peripheral Pulses, Regular Rate/Rhythm Breast Exam: Deferred Gastrointestinal: No Organomegaly, Non Tender, No Pulsatile Mass, Normal Bowel Sounds, Soft Genitalia: Deferred Pelvic: Deferred Rectal: Deferred Extremities: No calf tenderness, Normal capillary refill, Normal inspection, Normal range of motion, Non-tender, No pedal edema Musculoskeletal : Apperance: Normal Neurologic: Alert, tool and die maker level five II-XII nml as Tested, No Motor Deficits, Normal Affect, Normal Mood, No Sensory Deficits Cerebellar Function: Normal Reflexes: Normal Skin: Dry, Normal Color, Warm Lymphatic: No Adenopathy Was a procedure done? Was a procedure done?: No GI differential Dx Differential Diagnosis: Constipation, Diverticular disease, Gastritis/PUD, Gastroenteritis, Pancreatitis, UTI, Urolithiasis X-Ray, Labs, Meds, VS Vital Signs Date Time Temp Pulse Resp B/P (MAP) Pulse Ox O2 Delivery O2 Flow Rate FiO2 07/09/24 21:52 98.2 60 17 95/62 (73) 98 98.2 07/09/24 21:52 60 17 98 Room Air 07/09/24 20:52 98.0 66 18 111/78 (89) 100 Lab Test 07/09/24 20:41 07/09/24 20:07 Range/Units Urine Color Light-yellow Yellow Urine Clarity Clear Clear Urine pH 6.0 5.0-9.0 Urine Specific [place] 1.030 1.001-1.035 Urine Protein Negative Negative Urine Ketones Trace Negative Urine Blood Negative Negative /uL Urine Nitrite Negative Negative Urine Bilirubin Negative Negative Urine Urobilinogen Normal Negative mg/dL Urine Leukocyte Esterase 2+ Negative /uL Urine RBC 2 0 - 4 /hpf Urine WBC 12 0 - 5 /hpf Urine Squamous Epithelial Cells Mod <5 /hpf Urine Bacteria Few H None Seen /hpf Urine Glucose Normal Normal mg/dL White Blood Count 9.7 4.4-10.8 10^3/uL Red Blood Count 4.55 4.0-5.20 10^6/uL Hemoglobin 9.5 L 12.2-16.2 g/dL Hematocrit 30.9 L 36.0-46.0 % Mean Corpuscular Volume 68.0 L 80.0-100.0 fL Mean Corpuscular Hemoglobin 20.8 L 28.0-32.0 pg Mean Corpuscular Hemoglobin Concent 30.6 L 32.0-36.0 g/dL Red Cell Distribution Width 17.2 H 11.8-14.3 % Platelet Count 444 140-450 10^3/uL Mean Platelet Volume 7.8 6.9-10.8 fL Neutrophils (%) (Auto) 55.0 37.0-80.0 % Lymphocytes (%) (Auto) 34.0 10.0-50.0 % Monocytes (%) (Auto) 8.7 0.0-12.0 % Eosinophils (%) (Auto) 1.5 0.0-7.0 % Basophils (%) (Auto) 0.8 0.0-2.0 % Neutrophils # (Auto) 5.3 1.6-8.6 10 ^3/uL Lymphocytes # (Auto) 3.3 0.4-5.4 10 ^3/uL Monocytes # (Auto) 0.8 0-1.3 10 ^3/uL Eosinophils # (Auto) 0.1 0-0.8 10 ^3/uL Basophils # (Auto) 0.1 0-0.2 10 ^3/uL Nucleated Red Blood Cells 0.2 % Sodium Level 140 136-145 mmol/L Potassium Level 4.3 3.5-5.1 mmol/L Chloride Level 108 H 98-107 mmol/L Carbon Dioxide Level 26 20-31 mmol/L Anion Gap 6 5-15 Blood Urea Nitrogen 16 9-23 mg/dL Creatinine 0.85 0.550-1.02 mg/dL Glomerular Filtration Rate Calc 94 >90 mL/min BUN/Creatinine Ratio 18.8 10.0-20.0 Serum Glucose 70 L 74-106 mg/dL Calcium Level 10.3 8.7-10.4 mg/dL Total Bilirubin 0.3 0.2-1.0 mg/dL Aspartate Amino Transferase (AST) 25 13-40 U/L Alanine Aminotransferase (ALT) 23 7-40 U/L Alkaline Phosphatase 105 46-116 U/L Total Protein 7.5 5.7-8.2 g/dL Albumin 4.8 3.2-4.8 g/dL Lipase 40 12-53 U/L Beta HCG, Quantitative 1.5 1.5-4.2 mIU/mL Current Medications Medications (Trade) Dose Ordered Sig/Aisha Route Start Time Stop Time Status Last Admin Al Hydrox/Mg Hydrox/Simethicone (Maalox Plus) 30 ml ONCE ONCE PO 07/09/24 20:45 07/09/24 20:46 DC 07/09/24 21:49 Famotidine (Pepcid Tablet) 40 mg ONCE ONCE PO 07/09/24 20:45 07/09/24 20:46 DC 07/09/24 21:50 Trimethoprim/ Sulfamethoxazole (Bactrim Ds Tablet) 1 tab ONCE ONCE PO 07/09/24 21:30 07/09/24 21:31 DC 07/09/24 21:50 Time of 1ST Reevaluation: 20:49 Reevaluation 1ST: Unchanged Time of 2ND Reevaluation: 22:30 Reevaluation 2ND: Improved Patient Education/Counseling: Diagnosis, Treatment Family Education/Counseling: No Family Present Departure 1 Departure Time of Disposition: 23:00 Impression: Primary Impression: Acute LUQ pain Disposition: 01 HOME / SELF CARE / HOMELESS Condition: Stable e-Prescriptions Famotidine (PEPCID TABLET) 20 Mg Tb 1 TAB PO BID PRN for 30 Days, #60 TAB 3 Refills Prov: KEMAL ALBA MD 07/09/24 Sulfamethoxazole W/Trimethopri (Bactrim Ds Tablet) 1 Tab Tb 1 TAB PO BID for 7 Days, #14 TAB Prov: KEMAL ALBA MD 07/09/24 Critical Care Note Critical Care Time?: No Stability Stability form required: No Heart Score Heart Score: Heart Score Response (Comments) Value History N/A 0 EKG N/A 0 Age N/A 0 Risk Factors N/A 0 Troponin N/A 0 Total 0 I personally scribed for KEMAL ALBA MD ([email or web address]) on 07/09/24 at 20:52. Electronically submitted by Tommy Lloyd ([email or web address]). KEMAL ALBA MD Jul 09, 2024 20:52
[2024-07-09 21:00] LABS: Lipase 40 U/L (12-53)
[2024-07-09 21:07] LABS: Urine Bacteria FEW /hpf (None Seen); Urine Blood Negative /uL (Negative); Urine Clarity Clear (Clear); Urine Color Light-Yellow (Yellow); Urine Protein, UAD Negative (Negative); Urine Squamous Epithelial Cell MOD /hpf (<5); Urine Urobilinogen Normal (Negative); Urine WBC 12 /hpf (0 - 5)
--- NOTE | 2024-07-09 21:13 | DVH ---
Procedure: CT CT AB PEL WO CON-NO ORAL OR IV 07/09/2024 08:53 PM Indication: upper abd pain, left flank pain Comparison Study: None available at time of dictation. Technique: Axial images were obtained and reformatted in coronal and sagittal planes. All CT scans at this medical facility are performed using dose modulation techniques as appropriate t o a performed exam including the following: Automated exposure control was utilized; adjustment of th e MA and/or KV according to patient size; and use of iterative reconstruction technique. CT Dose: CTDI volume is 11 mGy. Dose-length product is 611 mGy*cm FINDINGS: Lower Chest: Base of the lungs are clear. The heart is normal in size. Suggestion of anemia. Hepatobiliary: Gallbladder is surgically absent. Spleen: Unremarkable. Pancreas: Unremarkable. Adrenal Glands: Unremarkable. tract: The kidneys are normal in size bilaterally without hydronephrosis or nephrolithiasis. The urinary bladder is unremarkable. GI tract: Changes of gastric bypass surgery note. No evidence of small bowel obstruction. The large b owel is unremarkable. The appendix is normal. Lymphatics: No mesenteric, retroperitoneal or periportal lymphadenopathy. Vasculature: The abdominal aorta is normal in in caliber. Pelvic Organs: Unremarkable Bones/soft tissues: No acute abnormality. Other: None. IMPRESSION: 1. No CT evidence for acute intra-abdominal or intrapelvic process. 2. Postoperative changes in keeping with gastric bypass surgery and cholecystectomy. 3. Suggestion of anemia.
[2024-07-09] MEDS ORDERED: BACDST PO (21:26)
[2024-07-09] MEDS ORDERED: FAMO20TA10 PO (21:26)
[2024-07-09] MEDS: MAALOX PLUS or MAALOX 30 ML PO ONE (21:49)
[2024-07-09] MEDS: SULFAMETHOX W/TRIMETH(800/160MG) DS TAB PO ONE (21:50)
[2024-07-09] MEDS: FAMOTIDINE 20 MG TAB PO ONE (21:50)
[2024-07-09] MEDS: ONDANSETRON ODT 4 MG TAB PO ONE (21:51)
[2024-07-09 21:52] VITALS: BP 95/62; PULSE 60; RESP 17; TEMP 98.2; O2SAT 98
== END 2024-07-09 21:58 | disposition home or self-care (01) ==
LOC: ER 19:52
DX: R10.12 Left upper quadrant pain (principal); Z88.0 Allergy status to penicillin; Z88.6 Allergy status to analgesic agent; Z90.49 Acquired absence of other specified parts of digestive tract; Z98.84 Bariatric surgery status
CPT/HCPCS: 36415; 74176; 80053; 81001; 83690; 84702; 85025